=== PATIENT | female | born 1990 | race Caucasian/White ===

== ENCOUNTER 2024-11-29 13:20 | Outpatient (OUT) | payer BC, SELFPAY ==
--- NOTE | 2024-11-29 13:30 | XR_ITS ---
The [address] [address] Patient Name: ENIO TINSLEY MRN: [id number] date: 1990 Sex: F Assigned Patient Location: [facility] Current Patient Location: [facility] Accession/Order Number: [id number] Exam Date: 11/29/2024 14:39 Report Date: 11/29/2024 14:40 At the request of: MEDHAT HAAS Procedure: XR sacrum coccyx min 2V SACRUM AND COCCYX - - 4 views CLINICAL HISTORY: Acute low back/tailbone pain.. No known injury. COMPARISON: None FINDINGS: SI joints demonstrate bilateral sacroiliitis. Sacral foramina appear intact. No bony destruction is seen. Coccyx appears intact without fracture. XR/XR sacrum coccyx min 2V IMPRESSION: SACROILIITIS. NO DEFINITE ACUTE BONY PROCESS IS SEEN. Impression dictated by: Fish Hanley Jr., DIvetteOIvette11/29/2024 2:40 PM Dictation Location: [place] [address] Electronically authenticated by: [id number] Y Date: 11/29/2024 14:40
== END 2024-11-29 13:21 | disposition home or self-care (01) ==
LOC: RAD 13:25
PROVIDERS: PCP Family Medicine; Visit Provider Family Medicine
DX: M53.3 Sacrococcygeal disorders, not elsewhere classified (principal); M46.1 Sacroiliitis, not elsewhere classified
CPT/HCPCS: 72220

== ENCOUNTER 2025-07-22 04:46 | Emergency (ER) | payer SELFPAY ==
[2025-07-22 04:50] VITALS: BP 133/92; PULSE 87; TEMP 37.2; O2SAT 99; BMI 36.6
--- NOTE | 2025-07-22 05:01 | ED.ABDPAIN1 ---
Documented by User: George Campoverde MD 07/23/25 05:44 HPI - Abdominal Pain General Chief Complaint: Abdominal Pain Stated Complaint: ABDOMINAL PAIN Time Seen by Provider: 07/22/25 04:52 Source: patient Mode of arrival: walk-in Limitations: no limitations History of Present Illness HPI narrative: presents complaining of ongoing epigastric pain since 11pm. States normal BMs. No nausea or vomiting. Denies similar pain in the past . No fever or chills or respiratory symptoms Related Data Home Medications ?Medication ?Instructions ?Recorded ?Confirmed No Known Home Medications 07/22/25 07/22/25 Allergies Allergy/AdvReac Type Severity Reaction Status Date / Time No Known Drug Allergies Allergy Verified 07/22/25 04:57 Review of Systems ROS Status of ROS 10 or more systems reviewed and unremarkable except as noted in history and below PFSH PFSH Social History Little interest or pleasure in doing things: not at all Feeling down, depressed, or hopeless: not at all Exam Constitutional Vital Signs, click to edit/add: Last Vital Signs Temp 98.9 F 07/22/25 04:50 Pulse 87 07/22/25 04:50 BP 133/92 H 07/22/25 04:50 Pulse Ox 99 07/22/25 04:50 O2 Del Method Room Air 07/22/25 04:50 Common normals: no apparent distress, average body habitus, oriented x3, no limitations, healthy appearing, alert and well nourished [facility] Common normals: normocephalic and head/scalp atraumatic Eye Common normals: EOMs intact bilaterally and conjunctivae normal Respiratory Common normals: normal respiratory effort, no retractions, no use of accessory muscles and clear to auscultation bilaterally Cardio Common normals: regular rate, regular rhythm, S1 normal heart sound and S2 normal heart sound GI Common normals: Normal to inspection, nondistended, normoactive bowel sounds present and soft to palpation Other: mild epigastric tenderness. no guarding Extremity Common normals: normal to inspection and full ROM Neuro Common normals: oriented x3, CN's II-XII intact bilaterally, moves all extremities and no focal motor deficits Psych Appearance: grossly normal Course Vital Signs Vital signs: Vital Signs Temperature 98.9 F 07/22/25 04:50 Pulse Rate 87 07/22/25 04:50 Blood Pressure 133/92 H 07/22/25 04:50 Pulse Oximetry 99 07/22/25 04:50 Oxygen Delivery Method Room Air 07/22/25 04:50 Temperature 98.9 F 07/22/25 04:50 Pulse Rate 87 07/22/25 04:50 Blood Pressure 133/92 H 07/22/25 04:50 Pulse Oximetry 99 07/22/25 04:50 Oxygen Delivery Method Room Air 07/22/25 04:50 MDM - Abdominal Pain MDM Narrative Medical decision making narrative: patient presents with epigastric pain. Denies similar pain in the past. Also has epigastric tenderness. Labs unremarkable including LFTs and troponin. CT abdomen pending at change of shift. Patient rechecked and still has pain but it has improved some. She does not want any pain medication. Care transferred at change of shift due to pending CT Lab Data Labs: Lab Results 07/22/25 Range/Units 05:03 WBC 10.8 (4.0-11.0) 10^3/uL RBC 4.34 (4.20-5.40) 10^6/uL Hgb 12.4 (12.0-16.0) g/dL Hct 36.9 (36.0-48.0) % MCV 85.0 (81.0-99.0) fL MCH 28.6 (26.7-34.0) pg MCHC 33.6 (29.9-35.2) g/dL RDW 12.5 (11.0-15.0) % Plt Count 269 (150-450) 10^3/uL MPV 10.2 (9.5-13.5) fL Neut % (Auto) 64.1 (43.0-75.0) % Lymph % (Auto) 26.3 (20.5-60.0) % [place] % (Auto) 6.4 (1.7-12.0) % Eos % (Auto) 2.2 (0.9-7.0) % Baso % (Auto) 0.6 (0.2-2.0) % Neut # (Auto) 6.9 H (1.4-6.5) 10^3/uL Lymph # (Auto) 2.9 (1.2-3.8) 10^3/uL [place] # (Auto) 0.7 (0.3-0.8) 10^3/uL Eos # (Auto) 0.2 (0.0-0.7) 10^3/uL Baso # (Auto) 0.1 (0.0-0.1) 10^3/uL Abs Immat Gran (auto) 0.04 H (0.00-0.03) 10^3/uL Imm/Tot Granulo (auto) 0.4 (0.0-0.5) % Sodium 140 (136-145) mmol/L Potassium 3.7 (3.5-5.1) mmol/L Chloride 105 (98-107) mmol/L Carbon Dioxide 27.8 (21.0-32.0) mmol/L Anion Gap 10.9 BUN 10.0 (7.0-18.0) mg/dL Creatinine 0.69 (0.55-1.02) mg/dL Est GFR ( Amer) >60 (>=60 mL/min/1.73m^2) Est GFR (Non-Af Amer) >60 (>=60 mL/min/1.73m^2) BUN/Creatinine Ratio 14.5 Glucose 108 H (74-106) mg/dL Lactate 1.1 (0.4-2.0) mmol/L Calcium 9.1 (8.5-10.1) mg/dL Total Bilirubin 0.2 (0.2-1.0) mg/dL AST 17 (15-37) U/L ALT 29 (14-59) U/L Alkaline Phosphatase 59 (46-116) U/L Troponin I High Sens <4.0 L (4.0-51.3) pg/mL Total Protein 7.3 (6.4-8.2) g/dL Albumin 3.6 (3.4-5.0) g/dL Globulin 3.7 g/dL Albumin/Globulin Ratio 1.0 Lipase 43.0 (16.0-77.0) U/L Discharge Plan Discharge Chief Complaint: Abdominal Pain Clinical Impression: Biliary colic Patient Disposition: Home, Self-Care Time of Disposition Decision: 07:31 Condition: Good Mode of Transportation: Private Vehicle Prescriptions / Home Meds: No Action No Known Home Medications Print Language: Greek Instructions: Biliary Colic (ED) Referrals: Yg Wolff MD [Physician, General Surgery] - 1 week MEDHAT HAAS [Primary Care Provider, Family Practice] - 1 week Discharge Date/Time: 07/22/25 07:40 Documented by User: Parth Blum DO 07/22/25 15:57 HPI - Abdominal Pain General Chief Complaint: Abdominal Pain Stated Complaint: ABDOMINAL PAIN Time Seen by Provider: 07/22/25 04:52 Related Data Home Medications ?Medication ?Instructions ?Recorded ?Confirmed No Known Home Medications 07/22/25 07/22/25 Allergies Allergy/AdvReac Type Severity Reaction Status Date / Time No Known Drug Allergies Allergy Verified 07/22/25 04:57 PFSH PFSH Social History Little interest or pleasure in doing things: not at all Feeling down, depressed, or hopeless: not at all Exam Constitutional Vital Signs, click to edit/add: Last Vital Signs Temp 98.9 F 07/22/25 04:50 Pulse 87 07/22/25 04:50 BP 133/92 H 07/22/25 04:50 Pulse Ox 99 07/22/25 04:50 O2 Del Method Room Air 07/22/25 04:50 Course Vital Signs Vital signs: Vital Signs Temperature 98.9 F 07/22/25 04:50 Pulse Rate 87 07/22/25 04:50 Blood Pressure 133/92 H 07/22/25 04:50 Pulse Oximetry 99 07/22/25 04:50 Oxygen Delivery Method Room Air 07/22/25 04:50 Temperature 98.9 F 07/22/25 04:50 Pulse Rate 87 07/22/25 04:50 Blood Pressure 133/92 H 07/22/25 04:50 Pulse Oximetry 99 07/22/25 04:50 Oxygen Delivery Method Room Air 07/22/25 04:50 MDM - Abdominal Pain MDM Narrative Medical decision making narrative: patient presents with epigastric pain. Denies similar pain in the past. Also has epigastric tenderness. Labs unremarkable including LFTs and troponin. CT abdomen pending at change of shift. Patient rechecked and still has pain but it has improved some. She does not want any pain medication. Care transferred at change of shift due to pending CT. ATTENDING ADDENDUM: Dr. Blum Patient signed out to me by Dr. Campoverde pending CT. CT abdomen/pelvis demonstrated submillimeter gallstone at the neck of the gallbladder. Laboratory studies were unremarkable with no evidence of hyperbilirubinemia, leukocytosis, or transaminitis. On reevaluation, the patient is resting comfortably in the stretcher. She has received no analgesics and is currently a 4/10 out of pain. I did offer to obtain an ultrasound, however the patient states she feels well and feels comfortable going home. I do believe she is stable for discharge. Her presentation is likely consistent with biliary colic. She was given information for the general surgery clinic for further care. Return precautions were given for any new or concerning symptoms. Patient understands and agrees to the plan. FINAL IMPRESSION: #Acute symptomatic cholelithiasis DISPOSITION: Discharged home CONDITION: Good Lab Data Attestation: I reviewed the patient's lab results. Labs: Lab Results 07/22/25 Range/Units 05:03 WBC 10.8 (4.0-11.0) 10^3/uL RBC 4.34 (4.20-5.40) 10^6/uL Hgb 12.4 (12.0-16.0) g/dL Hct 36.9 (36.0-48.0) % MCV 85.0 (81.0-99.0) fL MCH 28.6 (26.7-34.0) pg MCHC 33.6 (29.9-35.2) g/dL RDW 12.5 (11.0-15.0) % Plt Count 269 (150-450) 10^3/uL MPV 10.2 (9.5-13.5) fL Neut % (Auto) 64.1 (43.0-75.0) % Lymph % (Auto) 26.3 (20.5-60.0) % [place] % (Auto) 6.4 (1.7-12.0) % Eos % (Auto) 2.2 (0.9-7.0) % Baso % (Auto) 0.6 (0.2-2.0) % Neut # (Auto) 6.9 H (1.4-6.5) 10^3/uL Lymph # (Auto) 2.9 (1.2-3.8) 10^3/uL [place] # (Auto) 0.7 (0.3-0.8) 10^3/uL Eos # (Auto) 0.2 (0.0-0.7) 10^3/uL Baso # (Auto) 0.1 (0.0-0.1) 10^3/uL Abs Immat Gran (auto) 0.04 H (0.00-0.03) 10^3/uL Imm/Tot Granulo (auto) 0.4 (0.0-0.5) % Sodium 140 (136-145) mmol/L Potassium 3.7 (3.5-5.1) mmol/L Chloride 105 (98-107) mmol/L Carbon Dioxide 27.8 (21.0-32.0) mmol/L Anion Gap 10.9 BUN 10.0 (7.0-18.0) mg/dL Creatinine 0.69 (0.55-1.02) mg/dL Est GFR ( Amer) >60 (>=60 mL/min/1.73m^2) Est GFR (Non-Af Amer) >60 (>=60 mL/min/1.73m^2) BUN/Creatinine Ratio 14.5 Glucose 108 H (74-106) mg/dL Lactate 1.1 (0.4-2.0) mmol/L Calcium 9.1 (8.5-10.1) mg/dL Total Bilirubin 0.2 (0.2-1.0) mg/dL AST 17 (15-37) U/L ALT 29 (14-59) U/L Alkaline Phosphatase 59 (46-116) U/L Troponin I High Sens <4.0 L (4.0-51.3) pg/mL Total Protein 7.3 (6.4-8.2) g/dL Albumin 3.6 (3.4-5.0) g/dL Globulin 3.7 g/dL Albumin/Globulin Ratio 1.0 Lipase 43.0 (16.0-77.0) U/L Imaging Data CT scan - abdomen: Attestation: I personally reviewed and interpreted this imaging study as follows: Discharge Plan Discharge Chief Complaint: Abdominal Pain Clinical Impression: Biliary colic Patient Disposition: Home, Self-Care Time of Disposition Decision: 07:31 Condition: Good Mode of Transportation: Private Vehicle Prescriptions / Home Meds: No Action No Known Home Medications Print Language: Greek Instructions: Biliary Colic (ED) Referrals: Yg Wolff MD [Physician, General Surgery] - 1 week MEDHAT HAAS [Primary Care Provider, Family Practice] - 1 week Discharge Date/Time: 07/22/25 07:40
[2025-07-22 05:10] LABS: Hematocrit 36.9 % (36.0-48.0); Hemoglobin 12.4 g/dL (12.0-16.0); Immature Granulocytes Abs Auto 0.04 10^3/uL (0.00-0.03); Immature Granulocytes Pct Auto 0.4 % (0.0-0.5); Lymphocytes Absolute Auto 2.9 10^3/uL (1.2-3.8); Mean Corpuscular HGB Conc 33.6 g/dL (29.9-35.2); Mean Corpuscular Hemoglobin 28.6 pg (26.7-34.0); Mean Corpuscular Volume 85.0 fL (81.0-99.0); Platelet Count 269 10^3/uL (150-450); Red Blood Count 4.34 10^6/uL (4.20-5.40); White Blood Count 10.8 10^3/uL (4.0-11.0)
[2025-07-22 05:25] LABS: Alanine Aminotransferase 29 U/L (14-59); Albumin Globulin Ratio 1.0; Albumin Level 3.6 g/dL (3.4-5.0); Alkaline Phosphatase 59 U/L (46-116); Anion Gap 10.9; Aspartate Amino Transferase 17 U/L (15-37); Blood Urea Nitrogen 10.0 mg/dL (7.0-18.0); Calcium 9.1 mg/dL (8.5-10.1); Carbon Dioxide 27.8 mmol/L (21.0-32.0); Chloride 105 mmol/L (98-107); Estimated GFR (African America >60 (>=60 mL/min/1.73m^2); Estimated GFR (Non-African Ame >60 (>=60 mL/min/1.73m^2); Globulin 3.7 g/dL; Glucose 108 mg/dL (74-106); Potassium 3.7 mmol/L (3.5-5.1); Sodium 140 mmol/L (136-145); Total Protein 7.3 g/dL (6.4-8.2)
[2025-07-22 05:27] LABS: Lactate/Lactic Acid 1.1 mmol/L (0.4-2.0)
[2025-07-22 05:28] LABS: Lipase 43.0 U/L (16.0-77.0)
--- OUTSIDE RECORDS SUMMARY | 2025-07-22 06:27 | XMS_ITS | Clinical Summary ---
Author Organization [facility] Address [address] [place] [address] Care Team Providers Care Etl Architect Name Role Phone Yonis Turner MD Primary Care Provider [phone] Allergies No known active allergies Medications MedicationSigDispense QuantityRefillsLast FilledStart DateEnd DateStatus busPIRone (BUSPAR) 10 MG tablet Indications:AnxietyTake 1 (one) tablet (10 mg total) by mouth 3 (three) times a day . 90 tablet Active DULoxetine (CYMBALTA) 30 MG capsule Indications:Anxiety,Paresthesia of skinTake 1 (one) capsule (30 mg total) by mouth daily . 30 capsule Active Active Problems ProblemNoted DateDiagnosed DateEnlarged okkjrct7003/13/2019Gastroesophageal reflux bscalep6903/13/2019Paresthesia of skin01/27/20191682Pwtnbrg71/31/2018Depression 09/10/2018 Family History Medical HistoryRelationCommentsCancerMaternal AuntThyroid diseaseMaternal GrandmotherCancerMaternal UncleThyroid diseaseMotherRelationStatusComments Maternal AuntMaternal GrandmotherMaternal UncleMother Social History Tobacco UseTypesPacks/DayYears UsedDateSmoking Tobacco: FormerSmokeless Tobacco: NeverAlcohol UseStandard Drinks/WeekCommentsNot Currently0 (1 standard drink = 0.6 oz pure alcohol)PHQ-2AnswerDate RecordedPHQ-2 Aqqcl78610/14/2018 CommentsNoSex and Gender InformationValueDate RecordedSex Assigned at BirthNot on fileLegal WynKfizzw14/22/2015 9:43 AM EDTGender YhxylehzUxazdz35/05/2018 9:40 AM EDTSexual SgqmoyetgjuKclzmdrc02/05/2021 12:52 PM EDT Last Filed Vital Signs Vital SignReadingTime TakenCommentsBlood Tedpcnih819/80003/13/2019 3:43 PM EDT Vtwpq93434/03/2019 3:43 PM ZYDBgsxiawigdh65.1 ??C (98.8 ??F)03/13/2019 3:43 PM EDTRespiratory Uafv793003/13/2019 3:43 PM EDTOxygen Udmtmezhpl79%03/13/2019 3:43 PM EDTInhaled Oxygen Concentration--Yeedan706.7 kg (263 lb 12.8 oz)03/13/2019 3:43 PM BDMOtyerw084.5 cm (5' 2 )03/13/2019 3:43 PM EDTBody Mass Index48.25 03/13/2019 3:43 PM EDT Plan of Treatment Health MaintenanceDue DateLast DoneCommentsMMR Vaccines (1 of 1 - Standard series)1990Wellness Visit02/14/1992Varicella Vaccines (1 of 2 - 13+ 2-dose series)2002HIV Uvhhceyww51/05/2004Hepatitis C Bocwtvmwc85/05/2007Hepatitis B Vaccines (1 of 3 - 19+ 3-dose series)02/14/2008Tetanus/Diphtheria/Pertussis (1 - Tdap)02/14/2008Pap Smear2010HPV Vaccines (1 - 3-dose SCDM series) 02/14/2016Cervical Cancer Obigywrcw13/05/2019HPV/Qoprox5202/13/2019Depression Screening/Follow-Up (PHQ-2/9)COVID-19 Vaccine (1 - 2024- season)2025Influenza Vaccine (#1)2025Zoster Vaccines (1 of 2) 2039RSV Vaccines (1 - 1-dose 75+ series)02/14/2064HIB VaccinesAged OutNo longer eligible based on patient's age to complete this topicHepatitis A VaccinesAged OutNo longer eligible based on patient's age to complete this topic IPV VaccinesAged OutNo longer eligible based on patient's age to complete this topicMeningococcal ACWY VaccineAged OutNo longer eligible based on patient's age to complete this topicMeningococcal B VaccineAged OutNo longer eligible based on patient's age to complete this topicPneumococcal VaccineAged OutNo longer eligible based on patient's age to complete this topicRotavirus VaccinesAged Out No longer eligible based on patient's age to complete this topic Insurance * Guarantor: Alesia Ortiz TypeRelation to PatientDate of BirthPhone Billing MgjrjiiIaxqmzKrqu1990 [address] [place] [address] Care Teams Team MemberRelationshipSpecialtyStart Date Yonis Turner MD [address] [place] [id number] [facility] - Jbrnddg92/7/22
--- OUTSIDE RECORDS SUMMARY | 2025-07-22 06:27 | XMS_ITS | Clinical Summary ---
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 14 tablet 01/17/2018Active busPIRone 10 MG Tab tablet Take 10 mg by mouth 3 times daily.Active duloxetine [address] Particles capsule DR Take 30 mg by mouth daily.Active faMOTIdine 20 MG Tab tablet Take 1 tablet by mouth 2 times daily. 60 tablet Active Active Problems ProblemNoted DateDiagnosed Datebody mass index of 40.0-49.909Anxiety 05/28/20198626Hzsxmptsnz75/17/2019GERD (gastroesophageal reflux disease)05/28/2019 Chronic bilateral low back pain with bilateral /17/2019Chronic joint pain05/28/20194745Dpojfcxkgwxwn58/17/2019Wrist pain, acute, right01/17/2018 Family History Medical HistoryRelationNameCommentsCancer- OtherOtherfamilyOther - SpecifySister Pituitary Gland TumorRelationNameStatusCommentsOtherfamilyAliveSister Social History Tobacco UseTypesPacks/DayYears UsedDateSmoking Tobacco: FzwactBsfdvekzly4Ozgx: 2018Smokeless Tobacco: NeverAlcohol UseStandard Drinks/WeekCommentsNo0 (1 standard drink = 0.6 oz pure alcohol)CommentsNoSex and Gender InformationValueDate RecordedSex Assigned at BirthNot on fileLegal SexFemale 09/16/2016 7:11 PM ESTGender RchppyjwPorbuw89/09/2018 10:39 AM EDTSexual OrientationNot on file Last Filed Vital Signs Vital SignReadingTime TakenCommentsBlood Lkvhmbsq625/9605/28/2019 11:01 AM EDT Xjrbu79881/17/2019 11:01 AM NSPUehjhuywdra93.5 ??C (97.7 ??F)01/23/2018 10:37 AM EDTRespiratory Wdca374201/17/2018 12:08 PM EDTOxygen Ecekiszlri90%05/28/2019 11:01 AM EDTInhaled Oxygen Concentration--Aolzly704.9 kg (268 lb 12.8 oz)05/28/2019 11:01 AM SOHMzowhj284 cm (5' 3 )05/28/2019 11:01 AM EDTBody Mass Index47.62 05/28/2019 11:01 AM EDT Plan of Treatment Health MaintenanceDue DateLast DoneCommentsHEPATITIS C VIRUS SFKTYEKIY1989 DJIBMIV7502/13/1989HIV SCREENING CLHRYTNOBK49/05/2004HEP B VACCINE (1 of 3 - 19+ 3-dose series)02/14/2008TDAP (ADULT)02/14/2008CERVICAL CANCER SCREENING RZXBVWRMGH26/05/2010HPV VACCINE (1 - 3-dose SCDM series)02/14/2016COVID-19 VACCINE ( - 2024- season)2025INFLUENZA VACCINE (#1)2025 PNEUMOCOCCAL VACCINE SERIESAged OutNo longer eligible based on patient's age to complete this topic
--- OUTSIDE RECORDS SUMMARY | 2025-07-22 06:27 | XMS_ITS | CCD ---
Author Organization [facility] Care Team Providers Care Vocational Counselor Name Role Phone JUSTEN BELLE A Unavailable Unavailable SELF, SELF Unavailable Unavailable JUSTEN, BELLE A Unavailable Unavailable JUSTEN, BELLE A Unavailable Unavailable Charity, Natalia Sherrill Unavailable Unavailable Charity, [place] Sherrill Unavailable Unavailable Michael Yaneli Unavailable Unavailable Michael Yaneli Unavailable Unavailable SAJI KAPOOR Unavailable Unavailable MAGUE A ROBERT Unavailable Unavailable MAGUELen ROBERT Unavailable Unavailable NO, PHYSICIAN Unavailable Unavailable No, Physician Primary Care Provider Unavailabl e NO, PHYSICIAN Primary Care Unavailable LUIS ARMANDO MEYERS JR. Attending Unav ailable NO, PHYSICIAN Primary Care Unavailable LUIS ARMANDO MEYERS JR. Attending Unav ailable DOMI, RANDY Attending Unavailable DOMI, RANDY Referring Unavailable DOMI, RANDY Primary Care Unavailable Unavailable Primary Care Provider Unavailabl e Domi, Randy Primary Care Provider Medhat Haas MD Primary Care Provider Medhat Haas MD Unavailable MEDHAT HAAS Attending Unavailable MEDHAT HAAS Attending Unavailable MEDAHT HAAS Attending Unavailable MEDHAT HAAS Attending Unavailable MEDHAT HAAS Attending Unavailable Medhat Haas MD Unavailable Allergies Allergy ClassificationReported Allergen(s)Allergy TypeDate of OnsetReaction(s) Facility (14 sources)acetaminophen; Translations: [ACETAMINOPHEN]Drug [id number] [facility] Repository Medications Current Medications MedicationDrug Class(es)DatesSig (Normalized)Sig (Original)ALPRAZolam 0.5 mg oral tablet (10 sources)BenzodiazepineStart: 10-31-2024 End: 34-46-3925luse 1 tablet by mouth in the morningALPRAZolam (Xanax) 0.5 MG tablet Indications: Grief reaction Take 1 tablet (0.5 mg) by mouth in themorning and 1 tablet (0.5 mg) before bedtime. 60 tablet 10/31/2024 Activeamphetamine aspartate 5 mg / amphetamine sulfate 5 mg / dextroamphetamine saccharate 5 mg / dextroamphetamine sulfate 5 mg oral tablet (20 sources)Central Nervous System StimulantStart: 04-29-2024 End: 92-02-9010wxss 1 tablet by mouth once dailyamphetamine-dextroamphetamine (Adderall) 20 MG tablet Indications: Attention deficit hyperactivity disorder (ADHD), combined type Take 1 tablet (20 mg) by mouth Daily 30 tablet 04/10/2025 05/10/2025 Activebaclofen 10 mg oral tablet (6 sources)gamma-Aminobutyric Acid-ergic AgonistStart: 12-09-2024 End: 99-69-5486hsgs 1 tablet by mouth in the morning, then take 1 tablet by mouth in the evening, then take 1 tablet by mouth at bedtimebaclofen (Lioresal) 10 MG tablet Indications: Lumbar radiculopathy, acute , Sacral back pain TAKE 1 TABLET BY MOUTH IN THE MORNING AND 1 TABLET IN THE EVENING AND 1 TABLET BEFORE BEDTIME. 270 tablet 12/31/2024 ActivebusPIRone hydrochloride 10 mg oral tablet (7 sources)Start: 01-29-2019 End: 74-69-0101oqjm 1 tablet by mouth three times dailybusPIRone (BUSPAR) 10 MG tablet Indications: Anxiety Take 1 (one) tablet (10 mg total) by mouth 3 (three) times a day . 90 tablet 1 01/29/2019 03/30/2019 Activecitalopram 20 mg oral tablet (2 sources)Serotonin Reuptake InhibitorStart: 48-51-4743zetz 1 tablet by mouth once daily, then take 0.5 tablet by mouth once dailycitalopram (CELEXA) 20 MG tablet Indications: Anxiety , Depression, unspecified depression type Take 1 (one) tablet (20 mg total) by mouth daily 1/2 tab daily for first week only . 30 tablet 1 09/10/2018 ActiveDULoxetine 30 mg delayed release oral capsule (12 sources)Serotonin and Norepinephrine Reuptake InhibitorStart: 01-29-2019 End: 12-50-2949noqm 1 capsule by mouth once dailyDULoxetine (CYMBALTA) 30 MG capsule Indications: Anxiety , Paresthesia of skin Take 1 (one) capsule(30 mg total) by mouth daily . 30 capsule 1 01/29/2019 03/30/2019 Active End: 39-56-7576qvjt 1 capsule by mouth in the morningDULoxetine (Cymbalta) [address] capsule Take 60 mg by mouth in the morning. Do not crush or chew. . 0 10/31/2024 Discontinued (Other)famotidine 20 mg oral tablet (6 sources)Histamine-2 Receptor AntagonistStart: 03-65-1336gfdr 1 tablet by mouth twice dailyfaMOTIdine 20 MG Tab tablet Take 1 tablet by mouth 2 times daily. 60 tablet 3 05/28/2019 ActivehydroCHLOROthiazide 25 mg oral tablet (5 sources)Thiazide DiureticStart: 04-29-2024 End: 73-07-7406kewq 1 tablet by mouth once dailyhydroCHLOROthiazide (HYDRODiuril) 25 MG tablet Indications: Elevated blood pressure reading Take 1 t ablet (25 mg) by mouth Daily 30 tablet 11 04/29/2024 10/31/2024 Discontinued (Other)methylPREDNISolone (6 sources)CorticosteroidStart: 85-90-4284elroxqPXQYTGKxcnue (Medrol Dospak) 4 MG tablets Indications: Sacral back pain Follow schedule on package instructions 21 tablet 12/02/2024 Activenitrofurantoin, macrocrystals 25 mg / nitrofurantoin, monohydrate 75 mg oral capsule (1 source)Nitrofuran AntibacterialStart: 01-13-2019 End: 04-78-1187xzvb 1 capsule by mouth twice dailynitrofurantoin, macrocrystal- monohydrate, (MACROBID) 100 MG capsule Take 1 (one) capsule (100 mg total) by mouth 2 (two) times a day for 14 doses . 14 capsule 0 01/13/2019 01/20/2019 ActiveSemaglutide,0.25 or 0.5MG/DOS, (Ozempic, 0.25 or 0.5 MG/DOSE,) 2 MG/3ML solution pen-injector (2 sources)Start: 04-29-2024 End: 21-13-0192Qxbrvpufbkb,0.25 or 0.5MG/DOS, (Ozempic, 0.25 or 0.5 MG/DOSE,) 2 MG/3ML solution pen-injector Indications: Elevated blood pressure reading , Hyperglycemia Inject 0.25 mg under the skin 1 (one) time per week 12 mL 1 04/29/2024 09/16/2024 Discontinued (Side effects)Start: 04-29-2024 Semaglutide,0.25 or 0.5MG/DOS, (Ozempic, 0.25 or 0.5 MG/DOSE,) 2 MG/3ML solution pen-injector Indications: Elevated blood pressure reading , Hyperglycemia Inject 0.25 mg under the skin 1 (one) time per week 12 mL 1 04/29/2024 Active Tirzepatide (Mounjaro) 2.5 MG/0.5ML solution auto-injector (8 sources)Start: 22-82-8569sfqcuc 2.5 mg by subcutaneous injection every week Tirzepatide (Mounjaro) 2.5 MG/0.5ML solution auto-injector Indications: Weight gain , Obesity, morbid, BMI 40.0-49.9 (CMS-HCC) Inject 2.5 mg under the skin 1 (one) time per week 0.5 mL 11/14/2024 ActiveStart: 13-46-5647lnrscz 2.5 mg by subcutaneous injection every weekTirzepatide (Mounjaro) 2.5 MG/0.5ML solution auto-injector Indications: Weight gain , Obesity, morbid, BMI 40.0-49.9 (CMS/HCC) Inject 2.5 mg under the skin 1 (one) time per week 0.5 mL 11/14/2024 ActiveTirzepatide-Weight Management solution auto-injector 2.5 mg (1 source)Start: 09-17-2024 End: 39-66-9094Dvcmzmcqoas-Weight Management solution auto-injector 2.5 mg traMADol hydrochloride 50 mg oral tablet (5 sources)Opioid AgonistStart: 08-87-6765qliq 1 tablet by mouth every six hours as needed for paintraMADol 50 MG Tab tablet Indications: Wrist pain, acute, right Take 1 tablet by mouth every 6 hours as needed for Moderate Pain for up to 5 days. 14 tablet 0 01/17/2018 Active Completed/Discontinued Medications MedicationDrug Class(es)DatesSig (Normalized)Sig (Original)azithromycin 250 mg oral tablet (2 sources)Macrolide AntimicrobialStart: 02-12-2025 End: 50-42-7524jlbhqaczzxfs (Zithromax) 250 MG tablet Indications: Sinusitis, unspecified chronicity, unspecified location Take 2 tabs (500 mg) by mouth today, than 1 daily for 4 days. 6 tablet 02/12/2025 02/17/2025 ExpiredStart: 01-16-2025 End: 17-20-3924wwnc 2 tablets by mouth once daily, then take 1 tablet by mouth once dailyazithromycin (Zithromax) 250 MG tablet Indications: Viral upper respiratory tract infection Take 2 tablets (500 mg) by mouth Daily for 1 day, THEN 1 tablet (250 mg) Daily for 4 days. 6 tablet 01/16/2025 01/21/2025 Active Problems Active Problems Problem ClassificationProblemDateDocumented DateEpisodic/ChronicAbdominal pain (1 source)Flank pain; Translations: [Flank pain]EpisodicAdjustment disorders (12 sources)Grief finding; Translations: [Adjustment disorder with depressed mood]Onset: 181332-50-8876MbdchiyLeuyzhc disorders (20 sources)Anxiety; Translations: [Generalized anxiety disorder]Onset: 878436-52-1066PbeorwlPuqaumfxp-acpwyfw, conduct, and disruptive behavior disorders (7 sources)Attention deficit hyperactivity disorder, combined type; Translations: [Attention-deficit hyperactivity disorder, combined type] 57-06-4393QhlbclcSpksilnsg-deficit, conduct, and disruptive behavior disorders (13 sources)Attention deficit hyperactivity disorder; Translations: [Attention- deficit hyperactivity disorder, unspecified type]Onset: 330581-66-5911 ChronicEsophageal disorders (20 sources)Gastroesophageal reflux disease; Translations: [Gastro-esophageal reflux disease without esophagitis]Onset: 021898-84-1250MskkvzyJkmhalzi of upper limb (2 sources)Fracture of unspecified carpal bone, right wrist, initial encounter for closed fracture; Translations: [Fracture of unspecified carpal bone, right wrist, initial encounter for closed fracture]Onset: 91-33-1422FdgzcacvArktfvb and fatigue (2 sources)Other fatigue; Translations: [Other fatigue]Onset: 41-56-6880Fxdsnbxb Mood disorders (20 sources)Depressive disorder; Translations: [Depression]Onset: 09-10-2018 15-98-0393PfkwuyxVexrw complications of (13 sources)Maternal obesity complicating , childbirth and the puerperium, antepartum; Translations: [Obesity complicating , unspecified trimester]Onset: 226623-69-3758PadgqmfCnrzc nervous system disorders (12 sources)Bilateral lower limb piriformis syndrome; Translations: [Lesion of sciatic nerve, bilateral lower limbs]Onset: 814126-55-5212DvhytkpPaiof non-traumatic joint disorders (1 source)Pain in right wrist; Translations: [Pain in right wrist]Onset: 30-22-3720DvfywrkoAjxto nutritional; endocrine; and metabolic disorders (9 sources)Morbid obesity; Translations: [Obesity, morbid, BMI 40.0-49.9]Onset: 448047-74-3263QdlpsicJhjrq nutritional; endocrine; and metabolic disorders (6 sources)Obesity caused by energy imbalance; Translations: [Morbid (severe) obesity due to excess calories]Onset: 004653-64-0892BtlfpfpUeusi nutritional; endocrine; and metabolic disorders (10 sources)Body mass index 40+ - severely obese; Translations: [Morbid (severe) obesity due to excess calories]Onset: 518511-82-5664MhcsnwdVkptn upper respiratory infections (1 source)Sinusitis; Translations: [Chronic sinusitis, unspecified]02-12-2025 ChronicOther upper respiratory infections (1 source)Viral upper respiratory tract infection; Translations: [Acute upper respiratory infection, unspecified]46-75-2204KwnqpznkYojttwdfjch; intervertebral disc disorders; other back problems (8 sources)Inflammation of sacroiliac joint; Translations: [Sacroiliitis, not elsewhere classified]Onset: 716467-01-7725HtdhlidZvkwbdz disorders (14 sources)Goiter; Translations: [Nontoxic goiter, unspecified]Onset: 389383-46-9763OzugkqsAjbwyuq tract infections (1 source)Urinary tract infectious disease; Translations: [Urinary tract infection without hematuria, site unspecified]Episodic Past or Other Problems Problem ClassificationProblemDateDocumented DateEpisodic/ChronicDiabetes mellitus without complication (20 sources)Hyperglycemia; Translations: [Hyperglycemia, unspecified]Onset: 064372-81-1117AcdvwfwoSvxuykjzq and duodenitis (13 sources)Gastritis; Translations: [Gastritis, unspecified, without bleeding] Onset: 393501-17-2214IhkrvcjtSalvqqmjlkzsf symptoms and ill-defined conditions (13 sources)H/O: kidney infection; Translations: [Personal history of other diseases of urinary system]Onset: 763044-42-4942MhelpuhuIqakz circulatory disease (13 sources)Elevated blood pressure; Translations: [Elevated blood-pressure reading, without diagnosis of hypertension]Onset: 932178-50-1708Xzvvbjdc Other complications of ; puerperium affecting management of mother (13 sources)Anomaly of kidney; 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]Onset: 349445-38-2193HpeesaguHxtkg gastrointestinal disorders (13 sources)Constipation; Translations: [Other constipation]Onset: 02-02-2023 37-58-6287TudjkvbyXnwcp nervous system disorders (15 sources)Paresthesia; Translations: [Paresthesia of skin]Onset: 01-27-2019 15-75-7042LociorupAbyqz non-traumatic joint disorders (20 sources)Pain in wrist; Translations: [Pain in right wrist]Onset: 01-17-2018 27-12-6904YbxufybwZgpbe non-traumatic joint disorders (20 sources)Joint pain; Translations: [Pain in unspecified joint]Onset: 485935-65-5123DzeiksxxCoysv nutritional; endocrine; and metabolic disorders (10 sources)Weight increased; Translations: [Abnormal weight gain]Onset: 616246-29-2567JmtqybroQaupybqypfi; intervertebral disc disorders; other back problems (20 sources)Chronic low back pain; Translations: [Lumbago with sciatica, left side]Onset: 916891-34-8771BrmwvlhqBiynj infection (13 sources)Disease caused by 2019-nCoV; Translations: [COVID-19]Onset: 952623-75-0774Vzrocmid Results Test NameValueInterpretationReference RangeFacilitySaint Luke'S Hospital Medicine Office/Clinic Noteon 73-21-1458Ruhocn Medicine Office/Clinic NoteChief Complaint EST tooth pain HPI Staff Pt presents today for Rt sided tooth pain. The pain goes up into the uatsdin and ear. Pain onset last night. She has taken about 800 mg of Ibuprofen as well as some Tylenol and an NSAID with no relief. Has also tried ice with no relief. History of Present Illness I have reviewed and verified the staff HPI to be accurate for this encounter. 30 YOF presents to [facility] for evaluation of right sided dental pain that began last night. Is tearful,in an obvious amount of pain. Cannot chew to eat. Able to swallow ok. Pain extends right upper jaw to right ear. No fevers/chills at home. Denies swelling and popping/locking of jaw. Describes pain as sharp, achy and stabbing . Put pack of frozen pork chops on face to help with pain. Eating and talking makes pain worse. Has not eaten today due to pain. Similar pain experienced when wisdom teeth came in but this is worse than before. Took Motrin this morning and Tylenol this afternoon without relief. Has dental appointment on this Monday. Denies known COVID exposure. Review of Systems Constitutional: fever:no, chills:no, sweats:no, weakness:no, body aches:no, JEFFERS:no ENMT: ear pain:yes, right ear, sore throat:no, nasal congestion:no , nasal drainage: no, hoarseness:no Physical Exam Vitals & Measurements HR: 101(Peripheral) RR: 18 BP: 144/88 SpO2: 98% HT: 158 cm HT: 158.0 cm WT: 115 kg WT: 115.0 kg BMI: 46.07 General: Overweight, Ears: No deformity or lesion of external ear. Canals and TM appear normal bilaterally. TM?s intact,not inflamed, with normal light reflex. Hearing grossly normal to conversational speech Nose: No deformity, discharge, inflammation, or lesions Mouth: limited exam due to patient pain. No obvious dental infection or cracked teeth. Mental Status: Alert and oriented x3. Normal mood and affect Assessment/Plan 1. Disorder of oral soft tissue (K13.70: Unspecified lesions of oral mucosa) Exam consistent with the beginning of a dental infection/dental abscess. Will treat with PCN VK. Ptinstructed to use salt water gargles. No smoking. Follow up with a dentist to have the teeth addressed because the infections will continue to happen without having the issues fixed. Tylenol and Ibuprofen OTC for pain. Go to ED for worsening swelling, trouble swallowing, etc. Tramadol short course of 3 days for pain until can get into dentist. Lidocaine prn pain. OARRS reviewed and found to have: no concerns Opioid use was discussed with patient including proposed benefits of improving pain and function, and potential risks including development of dependence and addiction. Patient was directed to keep prescriptions in a safe, secure, preferably locked location to prevent loss or theft. Dispose of unused medication safely - turn in to local police department Take back program if this program is notavailable the FDA recommends flushing narcotics down the toilet. 2. Disorder of gums (K06.9: Disorder of gingiva and edentulous alveolar ridge, unspecified) Follow-up With When Contact Information DOMI RIVERA, RANDY Additional Instructions: Patient Education Dental Care and Dentist Visits Problem List/Past Medical History Ongoing Anxiety Depression Disorder of oral soft tissue Morbid obesity with body mass index of 45.0-49.9 in adult Historical Disorder of gums Procedure/Surgical History Tonsils and adenoids (2012). Medications busPIRone 10 mg Tab, 10 mg= 1 tab(s), Oral, TID duloxetine 30 mg Cap-DR, 30 mg, Oral, Daily Lidocaine Viscous 2% mucous membrane solution, 0.1 gm= 5 mL, Topical, TIDAC, PRN penicillin V potassium 500 mg Tab, 500 mg= 1 tab(s), Oral, q6hr tramadol 50 mg oral tablet, 50 mg= 1 tab(s), Oral, q8hr, PRN Allergies No Known Allergies Social History Alcohol - Denies Alcohol Use, 07/16/2019 Substance Abuse - Denies Substance Abuse, 07/16/2019 Tobacco - Denies Tobacco Use, 07/16/2019 10 or more cigarettes (1/2 pack or more)/day in last 30 days Tobacco Use:. Never Smokeless Tobacco Use:. Cigarettes, 08/26/2020 Family History Family history is negative patient was seen in conjunction with the INVESTIGATOR OPERATOR Antonette Banks. I independently examined the patient I agree with the findings and documentation above.[facility] HospitalComment on above:Result Comment: Electronically Signed By: PATRICK CAREY CNP\.br\Date and Time Signed: 08/26/20 20:09 EST Patient Educationon 22-78-2761Ujvdgsz EducationDentistry Dental Care and Dentist Visits Dental care supports good overall health. Regular dental visits can also help you avoid dental pain, bleeding, infection, and other more serious health problems in the future. It is important to keepthe mouth healthy because diseases in the teeth, gums, and other oral tissues can spread to other areas of the body. Some problems, such as diabetes, heart disease, and pre-term labor have been associated with poor oral health. See your dentist every 6 months. If you experience emergency problems such as a toothache or brokentooth, go to the dentist right away. If you see your dentist regularly, you may catch problems early. It is easier to be treated for problems in the early stages. WHAT TO EXPECT AT A DENTIST VISIT Your dentist will look for many common oral health problems and recommend proper treatment. At yourregular dental visit, you can expect: ? Gentle cleaning of the teeth and gums. This includes scraping and polishing. This helps to removethe sticky substance around the teeth and gums (plaque ). Plaque forms in the mouth shortly after eating. Over time, plaque hardens on the teeth as tartar. If tartar is not removed regularly, it can cause problems. Cleaning also helps remove stains. ? Periodic X-rays. These pictures of the teeth and supporting bone will help your dentist assess the health of your teeth. ? Periodic fluoride treatments. Fluoride is a natural mineral shown to help strengthen teeth. Fluoride treatment?involves applying a fluoride gel or varnish to the teeth. It is most commonly done in children. ? Examination of the mouth, tongue, jaws, teeth, and gums to look for any oral health problems, such as: ? Cavities (dental caries ). This is decay on the tooth caused by plaque, sugar, and acid in the mouth. It is best to catch a cavity when it is small. ? Inflammation of the gums caused by plaque buildup (gingivitis ). ? Problems with the mouth or malformed or misaligned teeth. ? Oral cancer or other diseases of the soft tissues or jaws.? KEEP YOUR TEETH AND GUMS HEALTHY For healthy teeth and gums, follow these general guidelines as well as your dentist's specific advice: ? Have your teeth professionally cleaned at the dentist every 6 months. ? Spencer twice daily with a fluoride toothpaste. ? Floss your teeth daily.? ? Ask your dentist if you need fluoride supplements, treatments, or fluoride toothpaste. ? Eat a healthy diet. Reduce foods and drinks with added sugar. ? Avoid smoking. TREATMENT FOR ORAL HEALTH PROBLEMS If you have oral health problems, treatment varies depending on the conditions present in your teeth and gums. ? Your caregiver will most likely recommend good oral hygiene at each visit. ? For cavities, gingivitis, or other oral health disease, your caregiver will perform a procedure to treat the problem. This is typically done at a separate appointment. Sometimes your caregiver willrefer you to another dental specialist for specific tooth problems or for surgery. SEEK IMMEDIATE DENTAL CARE IF: ? You have pain, bleeding, or soreness in the gum, tooth, jaw, or mouth area. ? A permanent tooth becomes loose or from the gum socket. ? You experience a blow or injury to the mouth or jaw area. Document Released: 05/09/2012 Document Revised: 11/19/2012 Document Reviewed: 05/09/2012 ExitCare? Patient Information ?2013 [employer].[facility]US THYROID ONLYon 20-24-2205QD THYROID ONLYEXAMINATION: US THYROID ONLY HISTORY: ORDERING SYSTEM PROVIDED HISTORY: Enlarged thyroid, TECHNOLOGIST PROVIDED HISTORY: Reason for exam: ENLARGED THYROID GLAND Illness/Other Cancer History: unknown Surgery, RadiationHistory: n/a Encounter Type: Initial Additional signs and symptoms: N ORDERING SYSTEM PROVIDED DIAGNOSIS CODES: E04.9 Enlarged thyroid COMPARISON: None. TECHNIQUE: Thyroid ultrasound utilizing grayscale and color Doppler analysis. FINDINGS: The thyroid gland is enlarged, with homogeneous echotexture. No solid nodules. Vascularity is normal. Right thyroid lobe measures 7.5 x 2.2 x 2.4 cm (20.7 mL). Isthmus measures 0.2 cm in AP dimension. Left thyroid lobe measures 7.6 x 2.5 x 2.5 cm (25.1 mL). IMPRESSION: 1. Thyromegaly with homogeneous echotexture and normal vascularity. 2. No solid nodules. [employer] Workstation ID: [id number] Dictated by: MIRIAN HAYES on MonJanuary 31, 2019 11:15:02 AM EDT Transcribed by: RODRIGUEZ PRESLEY IN [employer] on MonJanuary 31, 2019 11:15:02 AM EDT Finalized by: IMRIAN HAYES on MonJanuary 31, 2019 6:33:26 PM EDTNoRhode Island HospitalComment on above:Order Comment: Reason for exam?:ENLARGED THYROID GLAND Injury/Trauma or Illness?:Illness/Other How long have you had these symptoms (acute/chronic)?:Acute History of cancer?:unknown Surgeries, chemotherapy, or radiation?:n/a Type of Exam?:Initial Additional signs and symptoms?:NUS Thyroid Onlyon . Thyromegaly with homogeneous echotexture and normal vascularity. 2. No solid nodules. [employer] Work station ID: [id number]: US THYROID ONLY HISTORY: ORDERING SYSTEM PROVIDED HISTORY: Enlarged thyroid, TECHNOLOGIST PROVIDED HISTORY: Reason for exam: ENLARGED THYROID GLAND Illness/Other Cancer History: unknown Surgery, RadiationHistory: n/a Encounter Type: Initial Additional signs and symptoms: N ORDERING SYSTEM PROVIDED DIAGNOSIS CODES: E04.9 Enlarged thyroid COMPARISON: None. TECHNIQUE: Thyroid ultrasoundutilizing grayscale and color Doppler analysis. FINDINGS: The thyroid gland is enlarged, with homogeneous echotexture. No solid nodules. Vascularity is normal. Right thyroid lobe measures 7.5 x 2.2 x2.4 cm (20.7 mL). Isthmus measures 0.2 cm in AP dimension. Left thyroid lobe measures 7.6 x 2.5 x 2.5 cm (25.1 mL).[facility] [place] [facility] [employer] - 01/31/2019 6:36 PM EDT EXAMINATION: US THYROID ONLY HISTORY: ORDERING SYSTEM PROVIDED HISTORY: Enlarged thyroid, TECHNOLOGIST PROVIDED HISTORY: Reason for exam: ENLARGED THYROID GLAND Illness/Other Cancer History: unknown Surgery, RadiationHistory: n/a Encounter Type: Initial Additional signs and symptoms: N ORDERING SYSTEM PROVIDED DIAGNOSIS CODES: E04.9 Enlarged thyroid COMPARISON: None. TECHNIQUE: Thyroid ultrasound utilizing grayscale and color Doppler analysis. FINDINGS: The thyroid gland is enlarged, with homogeneous echotexture. No solid nodules. Vascularity is normal. Right thyroid lobe measures 7.5 x 2.2 x 2.4 cm (20.7 mL). Isthmus measures 0.2 cm in AP dimension. Left thyroid lobe measures 7.6 x 2.5 x 2.5 cm (25.1 mL). IMPRESSION: 1. Thyromegaly with homogeneous echotexture and normal vascularity. 2. No solid nodules. [employer] Workstation ID: [id number] gap molar conc12 mmol/L10 - 20 mmol/LOhioHealthCalcium mass conc8.8 mg/dL8.4 - 10.2 mg/dLOhioHealth Chloride molar sacq361 mmol/L98 - 108 mmol/LOhioHealthCreatinine mass conc0.74 mg/dL0.4 - 1.1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 [facility] SouthCxjgxagctg98-50-1123 11:05-0326WiT8% (BldA) [Mass fraction]98 %Medhat Haas MD Work Phone: [facility] SouthCjpldsumis14-27-7926 11:05-0500Systolic blood djubmwrb331 mm[Hg]Medhat Haas MD Work Phone: [phone] [place], [place] [address]Czheivjzkm10-82-8972 11:01-0400BMI (Body Mass Index)47.62 kg/m3AqaakyBryan [facility]09-17-2019 11:01-0400Body .93 kgLissettEncompass Health Rehabilitation Hospital of York09-17-2019 11:01-0400BP Utslhmjrm24 mm[Hg]Syed Vargas [facility] HOSPITALEIPUNZ66-79-8077 11:010400BP Dgwrfwcu467 mm[Hg]Syed BanegasCarilion [facility]azewell [facility] 05-28-2019 11:2777Snkejz972 cmLgayla [facility]09-17-2019 11:0400 Pulse (Heart Rate)109 /minSyed Medical Center [facility]09-17-2019 11:01-0400Pulse Apxdpjhm80 %Syed BanegasCarilion Tazewell Community HospitalNPZNVU45-28-9843 09:57-0400BMI (Body Mass Index) 47.51 kg/y1LikwpthwAshe [facility]09-17-2019 09:57-0400Body rgybau229.66 kg TonioFormerly [facility]09-17-2019 09:576146Yfmler029 cmEC[facility]05-19-2019 11:23-0400Body Yxoinswxkey26.71 [degF][facility]05-19-2019 11:23-0400BP Syhgdmbgp482 mm[Hg][facility] 01-27-2019 11:23-0400BP Nmwyzzgk433 mm[Hg][facility] HospitalBqkldieeDplzYumvpe44-29-3767 11:23-0400Pulse (Heart Rate)100 /[facility] InstituteEkjufkkgTebqSlwjfe86-66-2590 11:23-0400Pulse Xkfpgebt35 %[facility] HospitalIpymoxigBicyVahsos76-22-3447 11:23-0400 Respiratory Rate16 /[facility] InstituteSgobkxcrXagoKboypj68-37-1312 10:0400BMI (Body Mass Index)36.31 kg/u5IqdrjSpring Valley HospitalGvnstdesSaayRxxihk86-77-9970 10:020719Wsxzxo953 cm [facility] HospitalEguthbdfBvsfPbxocq41-07-7455 10:023904Ranrgf28.99 kgSt[address] [facility]05-05-2019 10:52-0400BP Vummtseys01 mm[Hg][facility] 01-13-2019 10:52-0400BP Weztuiec385 mm[Hg][facility] HospitalZnmjpjnaWhadDkfxln23-43-6234 10:52-0400Pulse (Heart Rate)95 /[facility] InstituteYtgtyfhjMlwdFcfzqx45-52-8123 10:52-0400 Pulse Gycttmgg70 %[facility] HealthcareOshzfngbUnxlUndmnw22-02-7732 10:52-0400Respiratory Rate 18 /minLuis Armando EhouerstEpdnXerxhw53-49-9829 09:36-0400BMI (Body Mass Index)35.96 kg/x0Dwzxq NhizwwznNgpqWbofoj55-15-5567 09:36-0400Body Tkbijysdtks55.1 [degF] Luis Armando SpwawpyjJmvvWlboqw38-72-5542 09:36-3686Sblypq903 cmLuis Armando OliveiraAdams County HospitalIdajPpfswc50-87-5165 09:36-8112Kiujvp54.08 kgLuis Armando [facility] Encounters Encounter DateEncounter TypeCare ProviderFacilityStart: 04-10-2025 End: 20-36-4461Xiftwsqka encounterMedhat Haas MD Work Phone: [facility] [place] Rayo MedinceStart: 04-03-2025 End: 41-61-3546WxisooMdrqzhq EvansvilleDecisionView CI FMComment on above:Attention deficit hyperactivity disorder (ADHD), combined typeStart: 02-12-2025 End: 72-05-2985LuzcfiXwpadis Tej MANOMS CI FMComment on above:Attention deficit hyperactivity disorder (ADHD), combined type ; Sinusitis, unspecified chronicity, unspecified locationStart: 01-16-2025 End: 68-21-3681Qavzznvwn encounterMedhat Haas MD Work Phone: [facility] CI FMStart: 12-09-2024 End: 66-20-6592Eovcff outpatient visit 25 minutesMedhat Haas MD Work Phone: [facility] CI FMComment on above:Lumbar radiculopathy, acute (Primary Dx); Sacral back pain; Sacroiliitis (CMS/HCC)Start: 12-09-2024 End: 43-05-4999rnkiccakbdTWJWG M ALDANot AvailableStart: 11-14-2024 End: 29-20-1820Mcibdb outpatient visit 25 minutesMedhat Haas MD Work Phone: [facility] CI FMComment on above:Weight gain (Primary Dx); Obesity, morbid, BMI 40.0-49.9 (CMS/HCC); Bilateral sciatica; Generalized anxiety disorder (CMS/HCC)Start: 11-14-2024 End: 48-82-2734ehgxdghaocGXRGD M ALDANot AvailableStart: 10-31-2024 End: 18-13-4484Jqtklq Herve Haas MD Work Phone: [facility] CI FMStart: 10-31-2024 End: 12-27-5860Ldrrqu Herve Haas MD Work Phone: [facility] CI FMStart: 10-31-2024 End: 85-04-0310Suwckq outpatient visit 25 minutesMedhat Haas MD Work Phone: [facility] CI FMComment on above:Bilateral sciatica (Primary Dx); Attention deficit hyperactivity disorder (ADHD), combined type (CMS/HCC); Piriformis syndrome of both sides; Grief reaction (CMS/HCC)Start: 10-31-2024 End: 97-08-4887pphmdiolndAHEPX M ALDANot AvailableStart: 09-16-2024 End: 89-19-9688Gwtwmlezf encounterMedhat Haas MD Work Phone: [facility] CI FMStart: 07-22-2024 End: 53-49-9739Rujdggnjx encounterMedhat Haas MD Work Phone: [facility] CI FMStart: 02-27-2024 End: 99-15-6347dkrsrkyaltSJTYF M ALDANot AvailableStart: 02-06-2024 End: 40-83-5153wdbaztnekuDBWNW M ALDANot AvailableStart: 07-22-2019 End: 80-59-1032Xknoam encounterLinden A Alicia Work Phone: [facility]ariat[facility] ClinicStart: 06-27-2019 End: 85-44-0183Gorowq encounterLinden A Alicia Work Phone: [facility]ariat[facility] ClinicStart: 06-19-2019 End: 80-05-8095Rfifgtqrh encounterLinden A Alicia Work Phone: [facility] Bariatric ClinicComment on above:Other Start: 05-28-2019 End: 31-33-2686Zlvxfj outpatient new 45 minutesSyed Vargas Work Phone: [facility] CadenceMD Bariatric ClinicComment on above:Obesity, morbid, BMI 40.0-49.9 (Primary Dx); Depression, unspecified depression type; Anxiety; Gastroesophageal reflux disease, esophagitis presence not specified; Chronic bilateral low back pain with bilateral sciatica; Hyperglycemia; Chronic joint painStart: 05-28-2019 End: 88-73-1752Lbuqrl outpatient new 60 minutesAra Edwards Work Phone: [facility] HospitalDevelopIntelligence [facility] Nutrition and DieteticsComment on above:ArrivedStart: 05-03-2019 End: 60-55-8701Mwokaty encounter procedureOther OtherThe Bellevue Hospitaltart: 01-31-2019 End: 40-12-2635Uzyialp encounter procedureNEIL United Health Servicestart: 01-31-2019 End: 94-74-0021Ammrthtxcq hospital visit by Katerine Rivera Work Phone: [facility] HospitalComment on above:Enlarged thyroidStart: 01-27-2019 End: 05-07-4010Uakssvusb department patient visitPHYBethesda North Hospital Start: 01-27-2019 End: 34-70-6583Rbxhzscsw department patient visitJalaura Meyers Work Phone: [facility] Emergency DepartmentComment on above: Paresthesia (Primary Dx)Start: 01-13-2019 End: 52-35-7448Yygnvxrjr department patient visitMer[facility] Start: 01-13-2019 End: 59-18-1413Knqqyqgdt department patient visitJames Satnam Maurice Work Phone: [facility] Emergency DepartmentComment on above: Flank pain (Primary Dx); Urinary tract infection without hematuria, site unspecifiedStart: 09-10-2018 End: 91-86-3598Racxigd encounter procedurePHYSICIKLAUS Senior HospitalStart: 24-37-9790WssvanodloQTTMUV A CULLENAvita [place] HospitalStart: 01-17-2018 End: 48-02-4677Lgphqgdgy department patient visitLAURIKy TORREvita [place] HospitalStart: 09-06-2017 End: 72-08-8174Jfjtspsdnh and management of inpatientYaneli Rodriguez Facility:[place]: 08-17-2017 End: 31-64-9531XsftswxciwFGWHEVC J BACAKAkron Children's HospitalStart: 06-26-2017 End: 59-19-7074Lopuxhtwt department patient visitNatalai Nash Facility:[place] Procedures DateProcedureProcedure DetailPerforming ClinicianStart: 80-00-6722Px soft tissue head & neck real time imge docmNeil Domi Work Phone: Start: 22-29-2213Jbichfoueg exam chest single view Luis Armando Meyers Work Phone: Start: 88-31-3695PO of head without contrastLuis Armando Meyers Work Phone: Start: 91-45-0186Qwlcetxtewkhmvqcna ( test) [Presence] in UrineLuis Armando Meyers Work Phone: Start: 27-71-0462BeqgsbkhwnIxsgp William Catalano Work Phone: Start: 82-31-8669Ksdxe metabolic 2000 panel - Serum or PlasmaLuis Armando Meyers Work Phone: Start: 22-15-9027Sjzmgrfq blood count with white cell differential, automatedLuis Armando Meyers Work Phone: Start: 10-89-8890Oncphxvu blood count with white cell differential, manualLuis Armando Meyers Work Phone: Start: 63-21-0157Hqbikmc function 2000 panel - Serum or PlasmaLuis Armando Meyers Work Phone: Start: 97-00-5231Bmqfqax [Moles/volume] in Serum or PlasmaLuis Armando Meyers Work Phone: Start: 89-80-759210 lead ECGLuis Armando Meyers Work Phone: Start: 71-83-7693Laojgioshgmtiqhpll ( test) [Presence] in UrineLuis Armando Meyers Work Phone: Start: 80-18-2745ZbkcmauqiiAbsoo William Catalano Work Phone: Plan of Treatment DateCare ActivityDetailAuthorStart: 35-31-0871Ylzaahpie vaccinationNOMS HealthcareStart: 11-14-2024 End: 43-57-7989Nwpomdb encounter bgemaedzt71/06/2025 1:30 PM EST Office Visit [facility] [address] [place] [address] Medhat Haas MD [address] [facility] [address] [place] [address] [facility] CI FMStart: 10-31-2024 End: 97-03-8055Kmvenrk encounter uzltsdggo86/20/2025 11:00 AM EST Office Visit [facility] [address] [place] [address] Medhat Haas MD [address] [facility] [address] [place] [address] ArrivedNOMS CI FMComment on above:ArrivedStart: 05-12-2024 Influenza vaccinationInfluenza Vaccine (#1)[facility] HealthcareStart: 10-14-2019 End: 82-39-1311Sdhnhimupfo03/03/2020 Appointment Nutrition and Dietetics Syed Vargas MD [address] [place] [address] [phone] Agustina Amaral, RD [address] [place], [place] [address]QgesqC[facility] Nutrition and DieteticsStart: 09-12-2019 End: 40-48-4007DaykcyeuqdqWuykrLong Island Hospital Nutrition and DieteticsStart: 08-14-2019 End: 13-69-5554FwpzmqtzaoeEhuzdLong Island Hospital Nutrition and DieteticsStart: 07-16-2019 End: 53-78-8016VtrvwulandgNsyghLong Island Hospital Nutrition and DieteticsStart: 07-04-2019 End: 02-76-6024Sldpzwgc EncounterInspira Medical Center [facility] Endoscopy ClinicComment on above: GERD (gastroesophageal reflux disease)EGD DIAGNOSTICStart: 07-02-2019 End: 10-49-8229Kksbuw Visit07/02/2019 Office Visit Pulmonary Disease Terrence Joshi MD [address] [facility] 1[address] [place], [id number] [facility] GalionStart: 06-13-2019 End: 25-10-3276Mptxabsvffk46/03/2019 Appointment Nutrition and Dietetics Syed Vargas MD [address] [place] [address] [phone] [place] [phone] [facility] Nutrition and DieteticsStart: 05-28-2019 End: 36-69-0616T85 & BEPQLSY72 & FOLATE Lab Routine Obesity, morbid, BMI 40.0- 49.9 Depression, unspecified depression typeAnxiety Gastroesophageal reflux disease, esophagitis presence not specified Chronic bilateral low back pain with bilateral sciatica Hyperglycemia Chronic joint pain Expected: 05/28/2019, Expires: 05/28/2020[facility] HOSPITALComment on above:Expected: 05/28/2019, Expires: 05/28/2020Start: 05-28-2019 End: 47-08-0321EBN, EDIF, PLATELETCBC, EDIF, PLATELET Lab Routine Obesity, morbid, BMI 40.0-49.9 Depression, unspecified depression type Anxiety Gastroesophageal reflux disease, esophagitis presence not specified Chronic bilateral low back pain with bilateral sciatica Hyperglycemia Chronic joint pain Expected: 05/28/2019, Expires: 05/28/2020[facility] HOSPITALComment on above:Expected: 05/28/2019, Expires: 05/28/2020Start: 05-28-2019 End: 37-95-8792Hainzsouiaapi metabolic 2000 panelCOMPREHENSIVE METABOLIC PANEL Lab Routine Obesity, morbid, BMI 40.0-49.9 Depression, unspecified depression type Anxiety Gastroesophageal reflux disease, esophagitis presence not specified Chronic bilateral low back pain with bilateral sciatica Hyperglycemia Chronic joint pain Expected: 05/28/2019,Expires: 05/28/2020[facility] on above: Expected: 05/28/2019, Expires: 05/28/2020Start: 05-28-2019 End: 61-68-9436XsZ2b (Bld) [Mass fraction]HEMOGLOBIN A1C Lab Routine Obesity, morbid, BMI 40.0-49.9 Depression, unspecified depression type Anxiety Gastroesophageal reflux disease, esophagitis presence not specified Chronic bilateral low back pain with bilateral sciatica Hyperglycemia Chronic joint pain Expected: 05/28/2019, Expires: 05/28/2020[facility] Hospitalment on above:Expected: 05/28/2019, Expires: 05/28/2020Start: 05-28-2019 End: 61-00-5846GMBL/IRON BINDING/TRANSFERRINIRON/IRON BINDING/TRANSFERRIN Lab Routine Obesity, morbid, BMI 40.0-49.9 Depression, unspecified depression type Anxiety Gastroesophageal reflux disease, esophagitis presence not specified Chronic bilateral low back pain with bilateral sciatica Hyperglycemia Chronic joint pain Expected: 05/28/2019,Expires: 05/28/2020[facility] Hospitalment on above: Expected: 05/28/2019, Expires: 05/28/2020Start: 05-28-2019 End: 41-64-6715UYLKZ PANEL W CALCULATED LDLLIPID PANEL W CALCULATED LDL Lab Routine Obesity, morbid, BMI 40.0-49.9 Depression, unspecified depression type Anxiety Gastroesophageal reflux disease, esophagitis presence not specified Chronic bilateral low back pain with bilateral sciatica Hyperglycemia Chronic joint pain Expected: 05/28/2019, Expires: 05/28/2020[facility] on above:Expected: 05/28/2019, Expires: 05/28/2020Start: 67-08-1106Ootvjjlps Pass 05/28/2019 Procedure Pass [facility]oscopyInspira [facility] Centertart: 05-28-2019 End: 13-18-1260MEY QnTSH Lab Routine Obesity, morbid, BMI 40.0-49.9 Depression, unspecified depression type Anxiety Gastroesophageal reflux disease, esophagitis presence not specified Chronic bilateral low back pain withbilateral sciatica Hyperglycemia Chronic joint pain Expected: 05/28/2019, Expires: 05/28/2020[facility] on above:Expected: 05/28/2019, Expires: 05/28/2020Start: 05-28-2019 End: 13-39-1488HYRIQRH T8AHZUVXZ B1 Lab Routine Obesity, morbid, BMI 40.0-49.9 Depression, unspecified depression type Anxiety Gastroesophageal reflux disease, esophagitis presence not specified Chronic bilateral low back pain with bilateral sciatica Hyperglycemia Chronic joint pain Expected: 05/28/2019, Expires: 05/28/2020[facility] HEALTHComment on above:Expected: 05/28/2019, Expires: 05/28/2020Start: 05-28-2019 End: 21-84-7632UHGVNAC D (25-HYDROXY,TOTAL)VITAMIN D (25-HYDROXY,TOTAL) Lab Routine Obesity, morbid, BMI 40.0-49.9 Depression, unspecified depression type Anxiety Gastroesophageal reflux disease, esophagitis presence not specified Chronic bilateral low back pain with bilateral sciatica Hyperglycemia Chronic joint pain Expected: 05/28/2019, Expires: 05/28/2020[facility] HEALTHComment on above:Expected: 05/28/2019, Expires: 05/28/2020Start: 05-28-2019 End: 22-63-2453IFEU, SERUMZINC, SERUM Lab Routine Obesity, morbid, BMI 40.0-49.9 Depression, unspecified depression type Anxiety Gastroesophageal reflux disease, esophagitis presence not specified Chronic bilateral low back pain with bilateral sciatica Hyperglycemia Chronic joint pain Expected: 05/28/2019, Expires: 05/28/2020[facility] HEALTHComment on above:Expected: 05/28/2019, Expires: 05/28/2020Start: 05-23-2019 End: 02-38-5609Qtmrlv Visit05/23/2019 Office Visit General Surgery Syed Vargas MD [address] [place] [address] [phone] [facility] Bariatric ClinicStart: 56-72-8925Pchasvnmo vaccinationINFLUENZA VACCINE (#1)[facility]ICtart: 88-20-0862Bbhrwhejs vaccination given SEQUENTIAL INFLUENZA VACCINE (Season Ended)[facility] DakotaHealthStart: 03-13-2019 End: 08-90-8026Vtspgk Visit03/13/2019 Office Visit Primary Care Randy Rivera MD [address] [place] [address] [phone] [facility]Start: 62-55-4065Cvlfjeeel for malignant neoplasm of cervixNOMS HealthcareStart: 01-29-2019 End: 79-59-7842Nwmuhf Visit01/29/2019 Office Visit Primary Care Randy Rivera MD [address] [place] [address] [phone] [facility] CenterStart: 83-62-8904Lafaobcbc for malignant neoplasm of cervixNOMS HealthcareStart: 37-57-9879Iqzpl diphtheria, tetanus and acellular pertussis (DTaP) vaccinationTDAP (ADULT)OSOHIOHEALTH ARTHUR G.[facility]. [facility], CANCER CENTERtart: 62-07-3477Ogxnmex vaccinationTETANUSOSOHIOHEALTH ARTHUR G.H[facility], CANCER CENTERtart: 2002 HIV screeningHIV SCREENING DISCUSSIONOSOHIOHEALTH ARTHUR G.H. BING, MD, CANCER CENTERtart: 02-14-1992 History and physical examination, annual for health maintenanceRiddle Hospitalness Visit [facility]HealthStart: 68-38-9291Ilwwhepuz for malignant neoplasm of cervixPAP SMEAR [facility]HealthStart: 73-65-6593Fctllrl vaccinationTETANUS EVERY 10 YROhioHealth End: 10-05-2184Jowdvhgb identified Aer cx Nom (Unsp spec)Urine Aerobic Culture Routine Once for 1 Occurrences starting 01/13/2019 until 01/13/2019[facility] Comment on above:Once for 1 Occurrences starting 01/13/2019 until 01/13/2019 Bacteria identified Aer cx Nom (Unsp spec)Urine Aerobic Culture Routine 01/13/2019 9:51 AM EDTOhiMedina Hospital End: 13-57-5657Kijoqseg identified Aer cx Nom (Unsp spec)Urine Aerobic Culture Microbiology Routine Once for 1 Occurrences starting 01/27/2019 until 01/27/2019 [facility]HealthComment on above:Once for 1 Occurrences starting 01/27/2019 until 01/27/2019 End: 90-65-3487Kbmqdihz identified Cx Nom (Bld)Blood Culture Aerobic/Anaerobic Microbiology Routine Once for 1 Occurrences starting 01/27/2019 until 01/27/2019 [facility]HealthComment on above:Once for 1 Occurrences starting 01/27/2019 until 01/27/2019Bacteria identified Cx Nom (Bld)Blood Culture Aerobic/Anaerobic Microbiology Routine 01/27/2019 10:29 AM EDTOhioHealthCT of head without contrastCT Head Or Brain Without Contrast Imaging STAT 01/27/2019 10:49 AM EDT [facility] ECGECG ECG Routine Obesity, morbid, BMI 40.0-49.9 Depression, unspecified depression type Anxiety Gastroesophageal reflux disease, esophagitis presence not specified Chronic bilateral low back pain withbilateral sciatica Hyperglycemia Chronic joint pain Ordered: 05/28/2019[facility] HOSPITALComment on above:Ordered: 05/28/2019 Payers DatePayer CategoryPayerPolicy [id number] [place] Blue [id number] [id number] Health InsuranceCARESOOKLAHOMA STATE UN[facility]ERS[facility] MEDICAID [id number] [id number] [id number] 2018Medicaidxxxxxxxxx [id number] [id number] 20.1.771465.3.57[id number] 20.1.988094.3.57[id number] 2.16.840.1.038963.3.57[id number] 2.16.840.1.079838.3.57[id number] 2.16.840.1.090339.3.57[id number] 2.16.840.1.369193.3.579.2.[id number] 2.16.840.1.506463.3.57[id number] 2.16.840.1.453839.3.579.2.1259 Social History DateTypeDetailFacilityStart: 01-13-2019 End: 57-19-9032Reugdtj smoking status NHISFormer smokerNOMS HealthcareSex Assigned At BirthNot on fileOhioHealthStart: 12-14-2009 End: 46-74-3381Dszihel of tobacco useCurrent smokerAVITA HEALTHStart: 12-14-2009 End: 92-56-4530Gabxglx of tobacco useCigarette SmokerCLEVELAND CLINIC FOUNDATION Start: 05-28-2019 End: 85-07-6397Onsikhckln smoked current (pack per day) - ReportedNOMS HealthcareStart: 05-28-2019 End: 62-75-2714Blavfee intakeNoNOMS HealthcareStart: 23-00-7514Dhqjirx intake Current non-drinker of alcohol (finding)[facility] HEALTHStart: 21-02-0079Urmuucb smoking status NHISCurrent every day smokerMARIETTA OSTEOPATHIC CLINICtart: 02-06-2024 End: 57-59-9299Qvxdqqk use and exposureSmokeless tobacco non-userNOMS Healthcare Start: 02-20-2024 End: 38-17-0868Ftoyypmpp beverage intakeEx-drinker (finding)[facility] Within the last year, have you been afraid of your partner or ex-partner?NoNOMS HealthcareAre you now , , , , never or living with a partner?Patient declinedNOMS HealthcareHow often to you have a drink containing alcohol?Monthly or lessNOMS HealthcareHow many standard drinks containing alcohol do you have on a typical day?1 or 2NOMS HealthcareHow often do you have 6 or more drinks on 1 occasion?NeverNOMS HealthcareDo you feel stress - tense, restless, nervous, or anxious, or unable to sleep at night because yourmind is troubled all the time - these days [OSQ]To some extentNOMS Healthcare(I/We) worried whether (my/our) food would run out before (I/we) got money to buy more.Never trueNOOH HealthcareStart: 25-58-0817Lgo assigned at birthFeEdgewood Surgical HospitalStart: 77-46-7671Sertjm identityIdentifies as female gender (finding)[facility] HealthcareStart: 77-60-0403Ptjkmy orientationHeterosexual (finding)[facility] HealthcareAre you now , , , , never or living with a partner?Living with partnerNORusk Rehabilitation Center Clinical Notes 07-22-2024 to 04-10-2025 Note Date & CpatVdrbIdeolopm57-37-2088 Telephone encounter Note* Telephone Encounter - Medhat Haas MD - 04/10/2025 1:05 PM EDT Informed patient needs an appoinment [facility] SouthCyxbsfqqnw41-35-3489 Miscellaneous Notes* Telephone Encounter - Medhat Haas MD - 04/10/2025 1:05 PM EDT Informed patient needs an appoinment documented in this encounterCox SouthSnetajpggw67-67-3760 Telephone encounter Note* Telephone Encounter - MICHAEL Ward - 04/03/2025 6:45 PM EDT Patient needs an appointment. Refill on ADHD medication denied. We have been unable to contact patient. [facility] SouthEbiyjcuigk02-60-4929 Miscellaneous Notes* Telephone Encounter - MICHAEL Ward - 04/03/2025 6:45 PM EDT Patient needs an appointment. Refill on ADHD medication denied. We have been unable to contact patient. documented in this encounterCox SouthBnkcjvrrah00-87-2452 Telephone encounter Note* Telephone Encounter - Ca Copeland - 02/24/2025 10:53 AM EDT Lvm - 3rd attempt to contact, no contact letter sent [facility] SouthAhheszjopm86-93-3013 Miscellaneous Notes* Telephone Encounter - Ca Copeland - 02/24/2025 10:53 AM EDT Lvm - 3rd attempt to contact, no contact letter sent * Telephone Encounter - Ca Copeland - 02/20/2025 9:11 AM EDT Lvm * Telephone Encounter - Ca Copeland - 2025 1:22 PM EDT Lvm * Telephone Encounter - MICHAEL Ward - 02/12/2025 2:47 PM EDT OARRS reviewed, Rx sent into patient's pharmacy. Please help pt get set up with Dr. Haas for controlled medication follow up at the end of this month. Thank you. documented in this encounterCox SouthSkbsoeggwt92-63-1394 Telephone encounter Note* Telephone Encounter - Cadev Copeland - 02/20/2025 9:11 AM EDT Lvm [facility] SouthFirvctcyhb94-17-7289 Telephone encounter Note* Telephone Encounter - Cadev Copeland - 2025 1:22 PM EDT Lvm [facility] SouthLeteriusle12-63-4815 Telephone encounter Note* Telephone Encounter - MICHAEL Ward - 02/12/2025 2:47 PM EDT OARRS reviewed, Rx sent into patient's pharmacy. Please help pt get set up with Dr. Haas for controlled medication follow up at the end of this month. Thank you. [facility] SouthNituegeazx38-53-9679 Telephone encounter Note* Telephone Encounter - Medhat Haas MD - 01/16/2025 1:13 PM EDT Patient has URI requesting a ZPAk [facility] SouthTcyctzujie39-88-0532 Miscellaneous Notes* Telephone Encounter - Medhat Haas MD - 01/16/2025 1:13 PM EDT Patient has URI requesting a ZPAk documented in this encounterCox SouthTicpabeugf59-24-0914 History of Present illness Narrative* Medhat Haas MD - 12/09/2024 2:53 PM EDTAssociated Problem(s): Sacroiliitis (CMS/HCC) Needs PT if NB Consider MRI * Medhat Haas MD - 12/09/2024 2:30 PM EDT Images from the original note were not included. Subjective Patient ID: Neno Ortiz is a 34 y.o. female who presents for Sciatica. Has tailbone pain, sciatica pt has not taken medrol evaristo , pt stated that the last week and half hasbeen the worst Heating pad , ibprofen she has been using Pt states that the pain will radiate down both of her legs Pt just started mounjaro a two days ago No fall Stands on mats and rotates and has back pain Some pain in back of legs and up back Current Outpatient Medications on File Prior to Visit Medication Sig Dispense Refill ALPRAZolam (Xanax) 0.5 MG tablet Take 1 tablet (0.5 mg) by mouth in the morning and 1 tablet (0.5 mg) before bedtime. 60 tablet 0 amphetamine-dextroamphetamine (Adderall) 20 MG tablet Take 1 tablet (20 mg) by mouth Daily 30 tablet 0 methylPREDNISolone (Medrol Dospak) 4 MG tablets Follow schedule on package instructions 21 tablet 0 Tirzepatide (Mounjaro) 2.5 MG/0.5ML solution auto-injector Inject 2.5 mg under the skin 1 (one) time per week 0.5 mL 0 No current facility-administered medications on file prior to visit. I have reviewed and reconciled the history and medication list with the patient today. Allergies Allergen Reactions Acetaminophen Rash Social History Tobacco Use Smoking status: Former Current packs/day: 0.00 Average packs/day: 0.5 packs/day for 13.2 years (6.6 ttl pk-yrs) Types: Cigarettes Start date: 12/14/2009 Quit date: 03/11/2023 Years since quittin.7 Smokeless tobacco: Never Substance Use Topics Alcohol use: Not Currently Drug use: Never Family History Problem Relation Name Age of Onset Hypertension Mother Mom Hyperlipidemia Father Dad Past Medical History: Diagnosis Date ADHD (attention deficit hyperactivity disorder) (CMS/HCC) Anxiety Depression (CMS/HCC) Past Surgical History: Procedure Laterality Date SECTION, LOW TRANSVERSE 2017 TONSILLECTOMY 2012 Visit Vitals BP 122/86 Pulse 93 Ht 5' 2 Wt 252 lb SpO2 97% BMI 46.09 kg/m Smoking Status Former BSA 2.23 m Review of Systems Gastrointestinal: Negative for abdominal pain and constipation. Genitourinary: Negative for enuresis and frequency. Musculoskeletal: Negative for joint swelling. Objective Physical Exam Constitutional: Appearance: Normal appearance. Musculoskeletal: Back: Comments: POP to SI Right worse on left and tight lumbar area Neurological: Mental Status: She is alert. Assessment/Plan Problem List Items Addressed This Visit Lumbar radiculopathy, acute - Primary Relevant Medications baclofen (Lioresal) 10 MG tablet Sacral back pain Relevant Medications baclofen (Lioresal) 10 MG tablet Sacroiliitis (CMS/HCC) Needs PT if NB Consider MRI No follow-ups on file. [id number] History of Present illness Narrative* Medhat Haas MD - 11/14/2024 1:52 PM ESTAssociated Problem(s): Bilateral sciatica Improved she is stretching * Medhat Haas MD - 11/14/2024 1:51 PM ESTAssociated Problem(s): Generalized anxiety disorder (CMS/HCC) Patient's Medicine is effective at controlling symptoms at current dose and frequency. PDMP reviewed with no evidence of overuse and abuse D/W patient to avoid use of benzodiazepines when consuming alcohol Advised against operating heavy machinery and driving long distances while on medicines. * Medhat Haas MD - 11/14/2024 1:30 PM EST Images from the original note were not included. HPI Depression Additional comments: grief Last edited by Nel Burnham MA on 11/14/2024 11:23 AM. Subjective Patient ID: Neno Ortiz is a 34 y.o. female who presents for Depression (grief). Pt is doing better and medication is doing ok for pt Put in bid for AM, hopefully soon Ready to go back to work Depression Visit Type: follow-up Patient presents with the following symptoms: depressed mood. Severity: moderate Current Outpatient Medications on File Prior to Visit Medication Sig Dispense Refill ALPRAZolam (Xanax) 0.5 MG tablet Take 1 tablet (0.5 mg) by mouth in the morning and 1 tablet (0.5 mg) before bedtime. 60 tablet 0 amphetamine-dextroamphetamine (Adderall) 20 MG tablet Take 1 tablet (20 mg) by mouth Daily 30 tablet 0 No current facility-administered medications on file prior to visit. I have reviewed and reconciled the history and medication list with the patient today. Allergies Allergen Reactions Acetaminophen Rash Social History Tobacco Use Smoking status: Former Current packs/day: 0.00 Average packs/day: 0.5 packs/day for 13.2 years (6.6 ttl pk-yrs) Types: Cigarettes Start date: 12/14/2009 Quit date: 03/11/2023 Years since quittin.6 Smokeless tobacco: Never Substance Use Topics Alcohol use: Not Currently Drug use: Never Family History Problem Relation Name Age of Onset Hypertension Mother Mom Hyperlipidemia Father Dad Past Medical History: Diagnosis Date ADHD (attention deficit hyperactivity disorder) ([facility]) Anxiety Depression ([facility]) Past Surgical History: Procedure Laterality Date SECTION, LOW TRANSVERSE 2017 TONSILLECTOMY 2012 Visit Vitals BP 122/88 Pulse 99 Ht 5' 2 Wt 244 lb SpO2 98% BMI 44.63 kg/m Smoking Status Former BSA 2.2 m Review of Systems Gastrointestinal: Negative for constipation and diarrhea. Psychiatric/Behavioral: Positive for depression. Negative for agitation. Objective Physical Exam Constitutional: General: She is not in acute distress. Appearance: Normal appearance. HENT: Head: Normocephalic. Pulmonary: Effort: Pulmonary effort is normal. No respiratory distress. Breath sounds: Normal breath sounds. Musculoskeletal: Legs: Comments: POP to both Piriformis muscles Neurological: General: No focal deficit present. Mental Status: She is alert and oriented to person, place, and time. Psychiatric: Mood and Affect: Mood normal. Assessment/Plan Problem List Items Addressed This Visit Generalized anxiety disorder (CMS/HCC) Patient's Medicine is effective at controlling symptoms at current dose and frequency. PDMP reviewed with no evidence of overuse and abuse D/W patient to avoid use of benzodiazepines when consuming alcohol Advised against operating heavy machinery and driving long distances while on medicines. Obesity, morbid, BMI 40.0-49.9 (CMS/HCC) Relevant Medications Tirzepatide (Mounjaro) 2.5 MG/0.5ML solution auto-injector Bilateral sciatica Improved she is stretching Weight gain - Primary Relevant Medications Tirzepatide (Mounjaro) 2.5 MG/0.5ML solution auto-injector No follow-ups on file. documented in this encounterC[id number] History of Present illness Narrative* Medhat Haas MD - 10/31/2024 11:29 AM ESTAssociated Problem(s): Attention deficit hyperactivity disorder ([facility]) Patient's Current ADD is controlled with current dose No evidence of overuse or abuse Weight has been stable Encouraged Medication Holidays PDMP reviewed F/U routinely every 3 months * Medhat Haas MD - 10/31/2024 11:28 AM ESTAssociated Problem(s): Grief reaction ([facility]/HCC) Patient's Medicine is effective at controlling symptoms at current dose and frequency. PDMP reviewed with no evidence of overuse and abuse D/W patient to avoid use of benzodiazepines when consuming alcohol Advised against operating heavy machinery and driving long distances while on medicines. * Medhat Haas MD - 10/31/2024 11:21 AM ESTAssociated Problem(s): Piriformis syndrome of both sides Stretching exercises shown * Medhat Haas MD - 10/31/2024 11:21 AM ESTAssociated Problem(s): Bilateral sciatica Stretching exercises * Medhat Haas MD - 10/31/2024 11:00 AM EST Images from the original note were not included. HPI Depression Additional comments: FMLA Last edited by Nel Burnham MA on 10/31/2024 10:59 AM. Subjective Patient ID: Neno Ortiz is a 34 y.o. female who presents for Depression (FMLA). 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 [employer] works 3rd shift. Off October 21 Return to work on November 18 Has tailbone pain Current Outpatient Medications on File Prior to Visit Medication Sig Dispense Refill [DISCONTINUED] amphetamine-dextroamphetamine (Adderall) 20 MG tablet Take 1 tablet (20 mg) by mouthDaily 30 tablet 0 [DISCONTINUED] amphetamine-dextroamphetamine (Adderall) 20 MG tablet Take 1 tablet (20 mg) by mouthDaily 30 tablet 0 [DISCONTINUED] DULoxetine (Cymbalta) [address] capsule Take 60 mg by mouth in the morning. Do not crush or chew. . [DISCONTINUED] hydroCHLOROthiazide (HYDRODiuril) 25 MG tablet Take 1 tablet (25 mg) by mouth Daily 30 tablet 11 No current facility-administered medications on file prior to visit. I have reviewed and reconciled the history and medication list with the patient today. Allergies Allergen Reactions Acetaminophen Rash Social History Tobacco Use Smoking status: Former Current packs/day: 0.00 Average packs/day: 0.5 packs/day for 13.2 years (6.6 ttl pk-yrs) Types: Cigarettes Start date: 12/14/2009 Quit date: 03/11/2023 Years since quittin.6 Smokeless tobacco: Never Substance Use Topics Alcohol use: Not Currently Drug use: Never Family History Problem Relation Name Age of Onset Hypertension Mother Mom Hyperlipidemia Father Dad Past Medical History: Diagnosis Date ADHD (attention deficit hyperactivity disorder) (CMS/HCC) Anxiety Depression (CMS/HCC) Past Surgical History: Procedure Laterality Date SECTION, LOW TRANSVERSE 2017 TONSILLECTOMY 2012 Visit Vitals BP 124/88 Pulse 99 Ht 5' 2 Wt 236 lb SpO2 98% BMI 43.16 kg/m Smoking Status Former BSA 2.16 m Review of Systems Constitutional: Negative for chills, fatigue, fever and unexpected weight change. Respiratory: Negative for cough. Cardiovascular: Negative for chest pain. Gastrointestinal: Negative for nausea. Still complains of some left sided abdominal pain especially after eating certain foods. Genitourinary: Negative for dysuria, enuresis, frequency and hematuria. Musculoskeletal: Negative for back pain. Neurological: Negative for dizziness, tremors, syncope, facial asymmetry and speech difficulty. Psychiatric/Behavioral: Positive for agitation, behavioral problems and dysphoric mood. Negative for confusion. The patient is nervous/anxious. Objective Physical Exam Constitutional: General: She is not in acute distress. Appearance: Normal appearance. HENT: Head: Normocephalic. Pulmonary: Effort: Pulmonary effort is normal. No respiratory distress. Breath sounds: Normal breath sounds. Musculoskeletal: Legs: Comments: POP to both Piriformis muscles Neurological: General: No focal deficit present. Mental Status: She is alert and oriented to person, place, and time. Psychiatric: Mood and Affect: Mood normal. Assessment/Plan Problem List Items Addressed This Visit Attention deficit hyperactivity disorder (CMS/HCC) Patient's Current ADD is controlled with current dose No evidence of overuse or abuse Weight has been stable Encouraged Medication Holidays PDMP reviewed F/U routinely every 3 months Relevant Medications amphetamine-dextroamphetamine (Adderall) 20 MG tablet Bilateral sciatica - Primary Stretching exercises Piriformis syndrome of both sides Stretching exercises shown Grief reaction (CMS/HCC) Patient's Medicine is effective at controlling symptoms at current dose and frequency. PDMP reviewed with no evidence of overuse and abuse D/W patient to avoid use of benzodiazepines when consuming alcohol Advised against operating heavy machinery and driving long distances while on medicines. Relevant Medications ALPRAZolam (Xanax) 0.5 MG tablet Follow up in about 4 weeks (around 11/28/2024). documented in this [facility]11-11-2024 Telephone encounter Note* Telephone Encounter - Medhat Haas MD - 07/22/2024 9:02 AM EST [facility]ill [id number] Miscellaneous Notes* Telephone Encounter - Medhat Haas MD - 07/22/2024 9:02 AM EST Needs refill documented in this [facility]Evaluation [facility]* Diagnosis Attention deficit disorder (ADD) without hyperactivity- Primary Attention deficit hyperactivity disorder (ADHD), combined type (CMS/HCC) Weight gain Other symptoms concerning nutrition, metabolism, and development Obesity, morbid, BMI 40.0-49.9 (CMS/HCC) Attention deficit disorder (ADD) without hyperactivity- Primary Morbid (severe) obesity due to excess calories (E66.01) Chronic gastritis without bleeding, unspecified gastritis type Attention deficit hyperactivity disorder (ADHD), predominantly inattentive type (CMS/HCC) Elevated blood pressure reading Elevated blood pressure reading without diagnosis of hypertension COVID-19 Elevated blood pressure reading- Primary Elevated blood pressure reading without diagnosis of hypertension Hyperglycemia Other abnormal glucose Attention deficit hyperactivity disorder (ADHD), combined type (CMS/HCC) documented in this encounter [facility] HealthcareEvaluation [facility]* Diagnosis Attention deficit disorder (ADD) without hyperactivity- Primary Attention deficit hyperactivity disorder (ADHD), combined type (CMS/HCC) Weight gain Other symptoms concerning nutrition, metabolism, and development Obesity, morbid, BMI 40.0-49.9 (CMS/HCC) Attention deficit disorder (ADD) without hyperactivity- Primary Morbid (severe) obesity due to excess calories (E66.01) Chronic gastritis without bleeding, unspecified gastritis type Attention deficit hyperactivity disorder (ADHD), predominantly inattentive type (CMS/HCC) Elevated blood pressure reading Elevated blood pressure reading without diagnosis of hypertension COVID-19 Elevated blood pressure reading- Primary Elevated blood pressure reading without diagnosis of hypertension Hyperglycemia Other abnormal glucose Attention deficit hyperactivity disorder (ADHD), combined type (CMS/HCC) Morbid (severe) obesity due to excess calories (E66.01) documented in this encounter [facility]* Diagnosis Attention deficit disorder (ADD) without hyperactivity- Primary Attention deficit hyperactivity disorder (ADHD), combined type (CMS/HCC) Weight gain Other symptoms concerning nutrition, metabolism, and development Obesity, morbid, BMI 40.0-49.9 (CMS/HCC) Attention deficit disorder (ADD) without hyperactivity- Primary Morbid (severe) obesity due to excess calories (E66.01) Chronic gastritis without bleeding, unspecified gastritis type Attention deficit hyperactivity disorder (ADHD), predominantly inattentive type (CMS/HCC) Elevated blood pressure reading Elevated blood pressure reading without diagnosis of hypertension COVID-19 Elevated blood pressure reading- Primary Elevated blood pressure reading without diagnosis of hypertension Hyperglycemia Other abnormal glucose Bilateral sciatica- Primary Sciatica Attention deficit hyperactivity disorder (ADHD), combined type (CMS/HCC) Piriformis syndrome of both sides Grief reaction (CMS/HCC) Adjustment disorder with depressed mood documented in this encounter [facility]* Diagnosis Attention deficit disorder (ADD) without hyperactivity- Primary Attention deficit hyperactivity disorder (ADHD), combined type (CMS/HCC) Weight gain Other symptoms concerning nutrition, metabolism, and development Obesity, morbid, BMI 40.0-49.9 (CMS/HCC) Attention deficit disorder (ADD) without hyperactivity- Primary Morbid (severe) obesity due to excess calories (E66.01) Chronic gastritis without bleeding, unspecified gastritis type Attention deficit hyperactivity disorder (ADHD), predominantly inattentive type (CMS/HCC) Elevated blood pressure reading Elevated blood pressure reading without diagnosis of hypertension COVID-19 Elevated blood pressure reading- Primary Elevated blood pressure reading without diagnosis of hypertension Hyperglycemia Other abnormal glucose Bilateral sciatica- Primary Sciatica Attention deficit hyperactivity disorder (ADHD), combined type (CMS/HCC) Piriformis syndrome of both sides Grief reaction (CMS/HCC) Adjustment disorder with depressed mood Weight gain- Primary Other symptoms concerning nutrition, metabolism, and development Obesity, morbid, BMI 40.0-49.9 (CMS/HCC) Bilateral sciatica Sciatica Generalized anxiety disorder (CMS/HCC) Generalized anxiety disorder documented in this encounter [facility]* Diagnosis Attention deficit disorder (ADD) without hyperactivity- Primary Attention deficit hyperactivity disorder (ADHD), combined type (CMS/HCC) Weight gain Other symptoms concerning nutrition, metabolism, and development Obesity, morbid, BMI 40.0-49.9 (CMS/HCC) Attention deficit disorder (ADD) without hyperactivity- Primary Morbid (severe) obesity due to excess calories (E66.01) Chronic gastritis without bleeding, unspecified gastritis type Attention deficit hyperactivity disorder (ADHD), predominantly inattentive type (CMS/HCC) Elevated blood pressure reading Elevated blood pressure reading without diagnosis of hypertension COVID-19 Elevated blood pressure reading- Primary Elevated blood pressure reading without diagnosis of hypertension Hyperglycemia Other abnormal glucose Bilateral sciatica- Primary Sciatica Attention deficit hyperactivity disorder (ADHD), combined type (CMS/HCC) Piriformis syndrome of both sides Grief reaction Adjustment disorder with depressed mood Weight gain- Primary Other symptoms concerning nutrition, metabolism, and development Obesity, morbid, BMI 40.0-49.9 (CMS/HCC) Bilateral sciatica Sciatica Generalized anxiety disorder (CMS/HCC) Generalized anxiety disorder Lumbar radiculopathy, acute- Primary Sacral back pain Disorders of sacrum Sacroiliitis (CMS/HCC) Sacroiliitis, not elsewhere classified documented in this encounter [facility]* Diagnosis Attention deficit disorder (ADD) without hyperactivity- Primary Attention deficit hyperactivity disorder (ADHD), combined type (CMS/HCC) Weight gain Other symptoms concerning nutrition, metabolism, and development Obesity, morbid, BMI 40.0-49.9 (CMS/HCC) Attention deficit disorder (ADD) without hyperactivity- Primary Morbid (severe) obesity due to excess calories (E66.01) Chronic gastritis without bleeding, unspecified gastritis type Attention deficit hyperactivity disorder (ADHD), predominantly inattentive type (CMS/HCC) Elevated blood pressure reading Elevated blood pressure reading without diagnosis of hypertension COVID-19 Elevated blood pressure reading- Primary Elevated blood pressure reading without diagnosis of hypertension Hyperglycemia Other abnormal glucose Bilateral sciatica- Primary Sciatica Attention deficit hyperactivity disorder (ADHD), combined type (CMS/HCC) Piriformis syndrome of both sides Grief reaction Adjustment disorder with depressed mood Weight gain- Primary Other symptoms concerning nutrition, metabolism, and development Obesity, morbid, BMI 40.0-49.9 (CMS/HCC) Bilateral sciatica Sciatica Generalized anxiety disorder (CMS/HCC) Generalized anxiety disorder Lumbar radiculopathy, acute- Primary Sacral back pain Disorders of sacrum Sacroiliitis ([facility]/HCC) Sacroiliitis, not elsewhere classified Viral upper respiratory tract infection- Primary Acute upper respiratory infections of unspecified site documented in this encounter [facility]* Diagnosis Attention deficit disorder (ADD) without hyperactivity- Primary Attention deficit hyperactivity disorder (ADHD), combined type Weight gain Other symptoms concerning nutrition, metabolism, and development Obesity, morbid, BMI 40.0-49.9 ([facility]) Attention deficit disorder (ADD) without hyperactivity- Primary Morbid (severe) obesity due to excess calories (E66.01) Chronic gastritis without bleeding, unspecified gastritis type Attention deficit hyperactivity disorder (ADHD), predominantly inattentive type Elevated blood pressure reading Elevated blood pressure reading without diagnosis of hypertension COVID-19 Elevated blood pressure reading- Primary Elevated blood pressure reading without diagnosis of hypertension Hyperglycemia Other abnormal glucose Bilateral sciatica- Primary Sciatica Attention deficit hyperactivity disorder (ADHD), combined type Piriformis syndrome of both sides Grief reaction Adjustment disorder with depressed mood Weight gain- Primary Other symptoms concerning nutrition, metabolism, and development [place]esity, morbid, [place] 40.0-49.9 [place] [place] Bilateral sciatica Sciatica Generalized anxiety disorder Generalized anxiety disorder Lumbar radiculopathy, acute- Primary Sacral back pain Disorders of sacrum Sacroiliitis Sacroiliitis, not elsewhere classified Attention deficit hyperactivity disorder (ADHD), combined type Sinusitis, unspecified chronicity, unspecified location documented in this encounter [facility]* Diagnosis Attention deficit disorder (ADD) without hyperactivity- Primary Attention deficit hyperactivity disorder (ADHD), combined type Weight gain Other symptoms concerning nutrition, metabolism, and development Obesity, morbid, BMI 40.0-49.9 ([facility]) Attention deficit disorder (ADD) without hyperactivity- Primary Morbid (severe) obesity due to excess calories (E66.01) Chronic gastritis without bleeding, unspecified gastritis type Attention deficit hyperactivity disorder (ADHD), predominantly inattentive type Elevated blood pressure reading Elevated blood pressure reading without diagnosis of hypertension COVID-19 Elevated blood pressure reading- Primary Elevated blood pressure reading without diagnosis of hypertension Hyperglycemia Other abnormal glucose Bilateral sciatica- Primary Sciatica Attention deficit hyperactivity disorder (ADHD), combined type Piriformis syndrome of both sides Grief reaction Adjustment disorder with depressed mood Weight gain- Primary Other symptoms concerning nutrition, metabolism, and development Obesity, morbid, BMI 40.0-49.9 ([facility]) Bilateral sciatica Sciatica Generalized anxiety disorder Generalized anxiety disorder Lumbar radiculopathy, acute- Primary Sacral back pain Disorders of sacrum Sacroiliitis Sacroiliitis, not elsewhere classified Attention deficit hyperactivity disorder (ADHD), combined type documented in this encounter [facility] HealthcareEvaluation note* Diagnosis Attention deficit disorder (ADD) without hyperactivity- Primary Attention deficit hyperactivity disorder (ADHD), combined type Weight gain Other symptoms concerning nutrition, metabolism, and development Obesity, morbid, BMI 40.0-49.9 [place] [place] Attention deficit disorder (ADD) without hyperactivity- Primary Morbid (severe) obesity due to excess calories (E66.01) Chronic gastritis without bleeding, unspecified gastritis type Attention deficit hyperactivity disorder (ADHD), predominantly inattentive type Elevated blood pressure reading Elevated blood pressure reading without diagnosis of hypertension COVID-19 Elevated blood pressure reading- Primary Elevated blood pressure reading without diagnosis of hypertension Hyperglycemia Other abnormal glucose Bilateral sciatica- Primary Sciatica Attention deficit hyperactivity disorder (ADHD), combined type Piriformis syndrome of both sides Grief reaction Adjustment disorder with depressed mood Weight gain- Primary Other symptoms concerning nutrition, metabolism, and development Obesity, morbid, BMI 40.0-49.9 [place] [place] Bilateral sciatica Sciatica Generalized anxiety disorder Generalized anxiety disorder Lumbar radiculopathy, acute- Primary Sacral back pain Disorders of sacrum Sacroiliitis Sacroiliitis, not elsewhere classified Attention deficit hyperactivity disorder (ADHD), combined type documented in this encounter [facility] Healthcare Summary Purpose Family History No Family History Records FoundNo Family History Records FoundNo Family History Records FoundNo Family History Records FoundNo Family History Records FoundNo Family History Records FoundNo Family History Records Found Advance Directives TypeDate RecordedPatient RepresentativeExplanationAdvance Directives and Living Will01/27/2019 10:09 AMTypeDate RecordedPatient RepresentativeExplanationAdvance Directives and Living Will01/31/2019 10:09 AM Discharge Instructions * Attachments The following attachments cannot be sent through Care Everywhere. * UTI (Urinary Tract Infection): Female (Bulgarian) documented in this encounter* Attachments The following attachments cannot be sent through Care Everywhere. * Numbness and Tingling (Bulgarian) documented in this encounter Assessments Diagnosis Flank pain- Primary Abdominal pain, unspecified site Urinary tract infection without hematuria, site unspecified Diagnosis Paresthesia- Primary Disturbance of skin sensation Diagnosis Obesity, morbid, BMI 40.0-49.9- Primary Depression, unspecified depression type Anxiety Anxiety state, unspecified Gastroesophageal reflux disease, esophagitis presence not specified Chronic bilateral low back pain with bilateral sciatica Hyperglycemia Other abnormal glucose Chronic joint pain Pain in joint, site unspecified Diagnosis Obesity, morbid, BMI 40.0-49.9 Diagnosis Enlarged thyroid Goiter, unspecified Reason for Referral StatusReasonSpecialtyDiagnoses / ProceduresReferred By ContactReferred To ContactNew Request Diagnoses Obesity, morbid, BMI 40.0-49.9 Depression, unspecified depression type Anxiety Gastroesophageal reflux disease, esophagitis presence not specified Chronic bilateral low back pain with bilateral sciatica Hyperglycemia Chronic joint pain Procedures ECG Syed Vargas MD [address] [place], [place] [id number] StatusReasonSpecialtyDiagnoses / ProceduresReferred By ContactReferred To ContactNew RequestSleep Medicine Diagnoses Obesity, morbid, BMI 40.0-49.9 Depression, unspecified depression type Anxiety Gastroesophageal reflux disease, esophagitis presence not specified Chronic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 [address] PCP - [facility]02/02/23 Medhat Haas MD [address] [facility] [address] [place] [address] PCP - [facility]12/11/23Team MemberRelationshipSpecialtyStart DateEnd Date Medhat Haas MD [address] [facility] [address] [place] [address] PCP - [facility]02/02/23 Medhat Haas MD [address] [facility] [address] [place] [address] PCP - [facility]12/11/23Te MemberRelationshipSpecialtyStart DateEnd Date Medhat Haas MD [address] [place] [address] PCP - [facility]02/02/23 Medhat Haas MD [address] [place] [address] PCP - [facility]12/11/23Te MemberRelationshipSpecialtyStart DateEnd Date Medhat Haas MD [address] [place] [address] PCP - [facility]02/02/23 Medhat Haas MD [address] [place] [address] PCP [facility]12/11/23Te MemberRelationshipSpecialtyStart DateEnd Date Medhat Haas MD [address] [place] [address] PCP - [facility]02/02/23 eMdhat Haas MD [address] [place] [address] [facility]12/11/23Te MemberRelationshipSpecialtyStart DateEnd Date Medhat Haas MD [address] [place] [address] PCP - [facility]02/02/23 Medhat Haas MD [address] [place] [address] [facility]12/11/23Te MemberRelationshipSpecialtyStart DateEnd Date Medhat Haas MD [address] [place] [address] PCP - [facility]02/02/23 Medhat Haas MD [address] [facility] [address] [place] [address] PCP - [facility]12/11/23 Medhat Haas MD [address] [facility] [address] [place] [address] PCP - [facility]01/09/25Team MemberRelationshipSpecialtyStart DateEnd Date Medhat Haas MD [address] [facility] [address] [place] [address] PCP - [facility]02/02/23 Medhat Haas MD [address] [facility] [address] [place] [address] PCP - [facility]12/11/23 Medhat Haas MD [address] [facility] [address] [place] [address] PCP - [facility]01/09/25 FOR RECORDS PERTAINING TO PATIENTS WHO ARE OR HAVE BEEN ENROLLED IN A CHEMICAL DEPENDENCY/SUBSTANCEABUSE PROGRAM, SOME INFORMATION MAY BE OMITTED. This clinical summary was aggregated from multiple sources. Caution should be exercised in using it in the provision of clinical care. This summary normalizes information from multiple sources, and as a consequence, information in this document may materially change the coding, format and clinical context of patient data. In addition, data may be omitted in some cases. CLINICAL DECISIONS SHOULD BE BASED ON THE PRIMARY CLINICAL RECORDS. [facility]. provides no warranty or guarantee of the accuracy or completeness of information in this document.
--- OUTSIDE RECORDS SUMMARY | 2025-07-22 06:27 | XMS_ITS | Clinical Summary ---
Author Organization [facility] Address [address] [place] [address] Care Team Providers Care Bid Clerk Name Role Phone Joseluis Byers MD Primary Care Provider [phone] Joseluis Byers MD Unavailable Allergies Active AllergyReactionsCriticalityNoted DateCommentsAcetaminophenRashLow 08/24/2015 Medications MedicationSigDispense QuantityRefillsLast FilledStart DateEnd DateStatus ALPRAZolam (Xanax) 0.5 MG tablet Indications:Grief reactionTake 1 tablet (0.5 mg) by mouth in the morning and 1 tablet (0.5 mg) before bedtime. 60 tablet 5Active Tirzepatide (Mounjaro) 2.5 MG/0.5ML solution auto-injector Indications:Weight gain,Obesity, morbid, BMI 40.0-49.9 ([facility])Inject 2.5 mg under the skin 1 (one) time per week 0.5 mL 5Active methylPREDNISolone (Medrol Dospak) 4 MG tablets Indications:Sacral back painFollow schedule on package instructions 21 tablet 5Active baclofen (Lioresal) 10 MG tablet Indications:Lumbar radiculopathy, acute,Sacral back painTAKE 1 TABLET BY MOUTH IN THE MORNING AND 1 TABLET IN THE EVENING AND 1 TABLET BEFORE BEDTIME. 270 tablet 5Active amphetamine-dextroamphetamine (Adderall) 20 MG tablet Indications:Attention deficit hyperactivity disorder (ADHD), combined typeTake 1 tablet (20 mg) by mouth Daily 30 tablet 5Active Active Problems ProblemNoted DateDiagnosed DateLumbar radiculopathy, acute12/09/2024Sacral back pain12/09/20241832Pzgrkszhzrud70/31/2025 Assessment & Plan (12/09/2024 2:53 PM EDT): Needs PT if NB Consider MRI Weight gain11/14/2024ilateral hvtobrfm95/20/2025 Assessment & Plan (11/14/2024 1:52 PM EST): Improved she is stretching Assessment & Plan (10/31/2024 11:21 AM EST): Stretching exercises Piriformis syndrome of both sides10/31/2024 Assessment & Plan (10/31/2024 11:21 AM EST): Stretching exercises shown Grief /20/2025 Assessment & Plan (10/31/2024 11:28 AM EST): Patient's Medicine is effective at controlling symptoms at current dose and frequency. PDMP reviewed with no evidence of overuse and abuse D/W patient to avoid use of benzodiazepines when consuming alcohol Advised against operating heavy machinery and driving long distances while on medicines. Lkdfpvhfm96/28/2024 Assessment & Plan (02/06/2024 2:17 PM EDT): Omeprazole/Prilosec Tylenol 500mg 1gram every 6 hours Does not look like Gall Bladder COVID-19002/06/2024 Assessment & Plan (02/06/2024 2:34 PM EDT): Patient had tested positive vi home exam and self quarantined. She has no more symptoms. Her fatigue, was her biggest symptom. Any cough and fevers have resolved Elevated blood pressure snbxmud8502/06/2024 Assessment & Plan (02/27/2024 9:12 AM EDT): Our specific goals, for your hypertension, is to keep your blood pressure less than 140/90, and theimportance of weight control. We made recommendations on how to control your blood pressure, and minimize your risk of these copmplications. We also discussed your current barriers to a healthy living and importance of healthy diet and exercise. Prior to your visit today we have reviewed your chart and formed a plan to assist with providing you the best possible care. We reviewed the possible complications of hypertension including, stroke, heart failure and kidney impairment. In addition, we discussed your medications, the importance of taking them as prescribed. Prescreen handouts Assessment & Plan (02/06/2024 2:33 PM EDT): Our specific goals, for your hypertension, is to keep your blood pressure less than 140/90, and theimportance of weight control. We made recommendations on how to control your blood pressure, and minimize your risk of these copmplications. We also discussed your current barriers to a healthy living and importance of healthy diet and exercise. Prior to your visit today we have reviewed your chart and formed a plan to assist with providing you the best possible care. We reviewed the possible complications of hypertension including, stroke, heart failure and kidney impairment. In addition, we discussed your medications, the importance of taking them as prescribed. Prescreen handouts History of fvsbmbrohxdaoc61/22/2023ttention deficit hyperactivity disorder 02/02/2023 Assessment & Plan (10/31/2024 11:29 AM EST): Patient's Current ADD is controlled with current dose No evidence of overuse or abuse Weight has been stable Encouraged Medication Holidays PDMP reviewed F/U routinely every 3 months Assessment & Plan (02/06/2024 2:18 PM EDT): Patient's Current ADD is controlled with current dose No evidence of overuse or abuse Weight has been stable Encouraged Medication Holidays PDMP reviewed F/U routinely every 4 months Assessment & Plan (06/13/2023 3:40 PM EDT): Patient's Current ADD is controlled with current dose No evidence of overuse or abuse Weight has been stable Encouraged Medication Holidays PDMP reviewed F/U routinely every 4 months Generalized anxiety vsrbthyc28/25/2023 Assessment & Plan (11/14/2024 1:51 PM EST): Patient's Medicine is effective at controlling symptoms at current dose and frequency. PDMP reviewed with no evidence of overuse and abuse D/W patient to avoid use of benzodiazepines when consuming alcohol Advised against operating heavy machinery and driving long distances while on medicines. Skwnmxguxc45/25/2023Other xsexcymszepe68/25/2023hronic bilateral low back pain with bilateral gwaszodd01/17/2019Chronic joint pain05/28/2019Hyperglycemia 05/28/2019Obesity, morbid, BMI 40.0-49.9005/28/2019 Assessment & Plan (02/06/2024 2:19 PM EDT): Weight Loss advised Assessment & Plan (06/13/2023 3:39 PM EDT): Needs life style modification. Exercise Routinely Low Calorie Diet F/U in 2 weeks 3500 calorie deficit = 1lb weight loss Small portions TIming of meals Reduce Carbohydrate Intake High Protein Diet Enlarged ekgfoar6603/13/2019Gastroesophageal reflux ozhyuue1703/13/2019Paresthesia of skin01/27/20192695Ygcynda51/31/2018Wrist pain, acute, right01/17/2018Obesity affecting , antepartum ([facility])08/17/2017Renal agenesis of fetus affecting antepartum care of mother ([facility])08/17/2017 Family History Medical HistoryRelationNameCommentsHyperlipidemiaFatherDadHypertensionMotherMom RelationNameStatusCommentsBrotherAlive1 brotherDaughterAlive2 daughtersFatherDad AliveMotherMomAliveSisterAlive3 sistersSonAlive2 sons Social History Tobacco UseTypesPacks/DayYears UsedDateSmoking Tobacco: FormerCigarettes0.513.2 12/14/2009 - 03/11/2023Smokeless Tobacco: Never Tobacco Cessation:Counseling Given: Not Answered Alcohol UseStandard Drinks/WeekCommentsNot Currently0 (1 standard drink = 0.6 oz pure alcohol)B1300 Health LiteracyAnswerDate RecordedHow often do you need to have someone help you when you read instructions, pamphlets, or other written material from your doctor or pharmacy?Never12/08/2024Humiliation, Afraid, Rape, and Kick questionnaireAnswerDate RecordedWithin the last year, have you been afraid of your partner or ex-partner?No06/04/2023Within the last year, have you been humiliated or emotionally abused in other ways by your partner or ex-partner?06/04/2023Within the last year, have you been kicked, hit, slapped, or otherwise physically hurt by your partner or ex-partner?06/04/2023Within the last year, have you been raped or forced to have any kind of sexual activity by your partner or ex-partner?No06/04/2023Social Connection and Isolation Panel AnswerDate RecordedIn a typical week, how many times do you talk on the phone with family, friends, or neighbors?Three times a week12/08/2024How often do you get together with friends or relatives?Twice a week12/08/2024How often do you attend zoroastrianism or rastafari services?More than 4 times per year12/08/2024Do you belong to any clubs or organizations such as zoroastrianism groups, unions, fraternal or athletic groups, or school groups?No12/08/2024How often do you attend meetings of the clubs or organizations you belong to?Patient czzlrbao66/30/2025re you , , , , never , or living with a partner? Living with iqsuvzh5712/08/2024UDIT-CAnswerDate RecordedQ1: How often do you have a drink containing alcohol?Never12/08/2024Q2: How many drinks containing alcohol do you have on a typical day when you are drinking?Patient does not drink 12/08/2024Q3: How often do you have six or more drinks on one occasion?Never 12/08/2024Overall Financial Resource Strain (CARDIA)AnswerDate RecordedHow hard is it for you to pay for the very basics like food, housing, medical care, and heating?Not hard at all12/08/2024PHQ-2AnswerDate RecordedPatient Health Questionnaire-2 Dfkay159[facility] [place] [facility] Occupational Health - Occupational Stress QuestionnaireAnswerDate RecordedDo you feel stress - tense, restless, nervous, or anxious, or unable to sleep at night because yourmind is troubled all the time - these days?To some vmmnvm2012/08/2024Exercise Vital Sign AnswerDate RecordedOn average, how many days per week do you engage in moderate to strenuous exercise (like a brisk walk)?5 days12/08/2024On average, how many minutes do you engage in exercise at this level?20 min12/08/2024Hunger Vital SignAnswerDate RecordedWithin the past 12 months, you worried that your food would run out before you got the money to buymore.Never true12/08/2024Within the past 12 months, the food you bought just didn't last and you didn't have money to get more.Never true12/08/2024PRAPARE - TransportationAnswerDate RecordedIn the past 12 months, has lack of transportation kept you from medical appointments or from getting medications?No12/08/2024In the past 12 months, has lack of transportation kept you from meetings, work, or from getting things needed for daily living?No12/08/2024Housing Stability Vital SignAnswerDate RecordedIn the last 12 months, was there a time when you were not able to pay the mortgage or rent on time?No06/04/2023In the last 12 months, how many places have you lived?In the last 12 months, was there a time when you did not have a steady place to sleep or slept in located within [facility] (including now)?No 06/04/2023Housing Stability Vital SignAnswerDate RecordedIn the last 12 months, was there a time when you were not able to pay the mortgage or rent on time?No 12/08/2024In the past 12 months, how many times have you moved where you were living?t any time in the past 12 months, were you homeless or living in a fci (including now)?No12/08/2024CommentsUnknownSex and Gender InformationValueDate RecordedSex Assigned at LalrwBeewth75/15/2023 10:44 AM EDT Legal YbzUdgzsa07/15/2023 6:55 PM EDTGender MfdcvvbiDxgiqz52/ 10:44 AM EDTSexual IxfvvxsmzteDdlmrhpo21/15/2023 10:44 AM EDT Last Filed Vital Signs Vital SignReadingTime TakenCommentsBlood Ulhrxwgl515/8612/09/2024 2:31 PM EDT Taouz964512/09/2024 2:31 PM EDTTemperature--Respiratory Ksao8700 10:39 AM EDTOxygen Hrcucroxly13%12/09/2024 2:31 PM EDTInhaled Oxygen Concentration-- Ddztci784 kg (252 lb)12/09/2024 2:31 PM XECFotzhm777.5 cm (5' 2 )12/09/2024 2:31 PM EDTBody Mass Index46.0912/09/2024 2:31 PM EDT Plan of Treatment Health MaintenanceDue DateLast DoneCommentsPap Smear2010Cervical Cancer Vwiwpfqge53/05/2019HPV/Jpawmx0202/13/2019COVID-19 Vaccine ( season) 2025Influenza Vaccine (#1)2025Pneumococcal Vaccine: Pediatrics (0 to 5 Years) and At-Risk Patients (6 to 64 Years)Aged OutNo longer eligible based on patient's age to complete this topic Insurance Care Teams Team MemberRelationshipSpecialtyStart DateEnd Joseluis Byers MD [address] [address] PCP - [facility]02/02/23 Joseluis Byers MD [address] [place] [address] PCP - [facility]12/11/23
== END 2025-07-22 07:40 | disposition home or self-care (01) ==
PROVIDERS: Emergency Provider Internal Medicine; PCP Family Medicine
DX: K80.50 Calculus of bile duct without cholangitis or cholecystitis without obstruction (principal)
CPT/HCPCS: 36415; 74176; 80053; 83605; 83690; 84484; 85025; 99284

== ENCOUNTER 2025-08-27 20:32 | Emergency (ER) | payer SELFPAY ==
[2025-08-27 20:39] VITALS: BP 144/100; PULSE 122; TEMP 36.7; O2SAT 98; BMI 36.6
--- NOTE | 2025-08-27 20:54 | ED.ABDPAIN1 ---
Documented by User: Carmelita Casey 08/27/25 21:50 HPI - Abdominal Pain General Chief Complaint: Abdominal Pain Stated Complaint: Abdominal Pain Time Seen by Provider: 08/27/25 20:45 Source: patient Mode of arrival: walk-in History of Present Illness HPI narrative: 35 year old female presents to the ED for low abd pressure, pain. States it feels like something is pressing on her vagina. Denies fever, chills, injury, N/V/D, urinary symptoms. She is having vaginal bleeding. States her LNMP was 3 weeks ago. She started having spotting today. Related Data Home Medications ?Medication ?Instructions ?Recorded ?Confirmed No Known Home Medications 07/22/25 07/22/25 Allergies Allergy/AdvReac Type Severity Reaction Status Date / Time No Known Drug Allergies Allergy Verified 07/22/25 04:57 Review of Systems ROS Constitutional Denies: fever or chills Cardiovascular Denies: chest pain Respiratory Denies: shortness of breath Gastrointestinal Reports: abdominal pain; Denies: nausea, vomiting or diarrhea Genitourinary Reports: pelvic pain and vaginal bleeding; Denies: painful urination, urinary frequency, urinary urgency or blood in urine Musculoskeletal Denies: back pain Integumentary/Breast Denies: rash PFSH PFSH Social History Little interest or pleasure in doing things: not at all Feeling down, depressed, or hopeless: not at all Exam Constitutional Vital Signs, click to edit/add: Last Vital Signs Temp 98.0 F 08/27/25 20:39 Pulse 122 H 08/27/25 20:39 Resp 18 08/27/25 20:39 BP 144/100 H 08/27/25 20:39 Pulse Ox 98 08/27/25 20:39 O2 Del Method Room Air 08/27/25 20:39 Common normals: no apparent distress and oriented x3 General appearance: cooperative HENMT Common normals: moist oral mucous membranes Eye Common normals: conjunctivae normal and no scleral icterus Neck & C-Spine Common normals: supple Respiratory Common normals: normal respiratory effort Effort & inspection: able to speak in complete sentences and symmetric chest movement Cardio Common normals: regular rate GI Common normals: soft to palpation Palpation: tender Details: suprapubic Speculum exam - vagina: vaginal bleeding Amount: scant and vaginal tenderness Other: Jaci 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 Course Vital Signs Vital signs: Vital Signs Temperature 98.0 F 08/27/25 20:39 Pulse Rate 122 H 08/27/25 20:39 Respiratory Rate 18 08/27/25 20:39 Blood Pressure 144/100 H 08/27/25 20:39 Pulse Oximetry 98 08/27/25 20:39 Oxygen Delivery Method Room Air 08/27/25 20:39 Temperature 98.0 F 08/27/25 20:39 Pulse Rate 122 H 08/27/25 20:39 Respiratory Rate 18 08/27/25 20:39 Blood Pressure 144/100 H 08/27/25 20:39 Pulse Oximetry 98 08/27/25 20:39 Oxygen Delivery Method Room Air 08/27/25 20:39 MDM - Abdominal Pain MDM Narrative Medical decision making narrative: CT scan was pending. Care was resumed to Dr. Atkins. See her dictation for further evaluation and treatment. Differential Diagnosis Differential diagnosis: Likely abdominal pain, calculus of kidney, small bowel obstruction and other (Prolapse, UTI, pelvic pain) Medical Records Attestation: I reviewed the patient's medical records. Lab Data Attestation: I reviewed the patient's lab results. Labs: Lab Results 08/27/25 08/27/25 Range/Units 20:58 21:37 WBC 9.4 (4.0-11.0) 10^3/uL RBC 4.08 L (4.20-5.40) 10^6/uL Hgb 11.5 L (12.0-16.0) g/dL Hct 34.1 L (36.0-48.0) % MCV 83.6 (81.0-99.0) fL MCH 28.2 (26.7-34.0) pg MCHC 33.7 (29.9-35.2) g/dL RDW 12.9 (11.0-15.0) % Plt Count 257 (150-450) 10^3/uL MPV 10.5 (9.5-13.5) fL Neut % (Auto) 55.2 (43.0-75.0) % Lymph % (Auto) 34.5 (20.5-60.0) % Page % (Auto) 7.6 (1.7-12.0) % Eos % (Auto) 1.8 (0.9-7.0) % Baso % (Auto) 0.5 (0.2-2.0) % Neut # (Auto) 5.2 (1.4-6.5) 10^3/uL Lymph # (Auto) 3.2 (1.2-3.8) 10^3/uL Page # (Auto) 0.7 (0.3-0.8) 10^3/uL Eos # (Auto) 0.2 (0.0-0.7) 10^3/uL Baso # (Auto) 0.1 (0.0-0.1) 10^3/uL Abs Immat Gran (auto) 0.04 H (0.00-0.03) 10^3/uL Imm/Tot Granulo (auto) 0.4 (0.0-0.5) % Sodium 137 (136-145) mmol/L Potassium 3.6 (3.5-5.1) mmol/L Chloride 104 (98-107) mmol/L Carbon Dioxide 27.2 (21.0-32.0) mmol/L Anion Gap 9.4 BUN 8.0 (7.0-18.0) mg/dL Creatinine 0.65 (0.55-1.02) mg/dL Est GFR ( Amer) >60 (>=60 mL/min/1.73m^2) Est GFR (Non-Af Amer) >60 (>=60 mL/min/1.73m^2) BUN/Creatinine Ratio 12.3 Glucose 110 H (74-106) mg/dL Calcium 8.8 (8.5-10.1) mg/dL Total Bilirubin 0.1 L (0.2-1.0) mg/dL AST 15 (15-37) U/L ALT 25 (14-59) U/L Alkaline Phosphatase 51 (46-116) U/L Total Protein 6.8 (6.4-8.2) g/dL Albumin 3.3 L (3.4-5.0) g/dL Globulin 3.5 g/dL Albumin/Globulin Ratio 0.9 Urine Color Lt. yellow (YELLOW) Urine Clarity Sl cloudy (CLEAR) Urine pH 7.0 (5.0-9.0) Ur Specific [place] 1.010 (1.005-1.025) Urine Protein Negative (NEG/TRACE) mg/dL Urine Glucose (UA) Negative (NEGATIVE) mg/dL Urine Ketones Negative (NEGATIVE) mg/dL Urine Occult Blood Large A (NEGATIVE) Urine Nitrite Negative (NEGATIVE) Urine Bilirubin Negative (NEGATIVE) Urine Urobilinogen 0.2 (0.2-1.0) EU/dL Ur Leukocyte Esterase Trace A (NEGATIVE) Urine RBC 0-2 (0-2) #/HPF Urine WBC 0-2 A (NONE SEEN) #/HPF Ur Squamous Epith Cells Moderate A (NONE/RARE) #/LPF Ur Transition Epith Cell Rare A (NONE SEEN) #/LPF Urine Crystals Seen A (None Seen) #/HPF Amorphous Sediment Few Urine Bacteria Trace A (NONE SEEN) #/HPF Urine Casts None seen (NONE SEEN) #/LPF Urine Mucus None seen (NONE SEEN) Urine HCG, Qual Negative (NEGATIVE) Imaging Data CT scan - abdomen: Radiologist's impression: ITS Impressions Abdomen/Pelvis CT 08/27/25 21:08 IMPRESSION: Degenerative changes are noted in the lumbar spine with a left central disc extrusion showing mild caudal migration. There is accompanying vacuum disc phenomena extending into the extruded disc. This most likely contributes to mass effect on the traversing left L5 nerve roots and is unchanged when compared to the prior study. No acute intra-abdominal pathology. Stones are noted in the gallbladder. This is similar to the prior exam. Impression dictated by: Vincenzo López M.D. 08/27/2025 10:28 PM Dictation Location: [place] [address] Electronically authenticated by: [id number] Y Date: 08/27/2025 22:28 Discharge Plan Discharge Chief Complaint: Abdominal Pain Clinical Impression: Lower abdominal pain, Pelvic pain Patient Disposition: Home, Self-Care Time of Disposition Decision: 22:47 Condition: Good Prescriptions / Home Meds: No Action No Known Home Medications Print Language: Guyanese Instructions: Pelvic Pain in Women (ED), Abdominal Pain (ED) Referrals: MEDHAT HAAS [Primary Care Provider, Family Practice] - 1 week Documented by User: Jing Atkins MD 08/27/25 22:48 HPI - Abdominal Pain General Chief Complaint: Abdominal Pain Stated Complaint: Abdominal Pain Time Seen by Provider: 08/27/25 20:45 Related Data Home Medications ?Medication ?Instructions ?Recorded ?Confirmed No Known Home Medications 07/22/25 07/22/25 Allergies Allergy/AdvReac Type Severity Reaction Status Date / Time No Known Drug Allergies Allergy Verified 07/22/25 04:57 PFSH PFSH Social History Little interest or pleasure in doing things: not at all Feeling down, depressed, or hopeless: not at all Exam Constitutional Vital Signs, click to edit/add: Last Vital Signs Temp 98.0 F 08/27/25 20:39 Pulse 122 H 08/27/25 20:39 Resp 18 08/27/25 20:39 BP 144/100 H 08/27/25 20:39 Pulse Ox 98 08/27/25 20:39 O2 Del Method Room Air 08/27/25 20:39 Course Vital Signs Vital signs: Vital Signs Temperature 98.0 F 08/27/25 20:39 Pulse Rate 122 H 08/27/25 20:39 Respiratory Rate 18 08/27/25 20:39 Blood Pressure 144/100 H 08/27/25 20:39 Pulse Oximetry 98 08/27/25 20:39 Oxygen Delivery Method Room Air 08/27/25 20:39 Temperature 98.0 F 08/27/25 20:39 Pulse Rate 122 H 08/27/25 20:39 Respiratory Rate 18 08/27/25 20:39 Blood Pressure 144/100 H 08/27/25 20:39 Pulse Oximetry 98 08/27/25 20:39 Oxygen Delivery Method Room Air 08/27/25 20:39 MDM - Abdominal Pain MDM Narrative Medical decision making narrative: CT scan was pending. Care was resumed to Dr. Atkins. See her dictation for further evaluation and treatment. This 35-year-old female was seen and evaluated in conjunction with the nurse practitioner. She presents for evaluation of lower abdominal pain and pressure and concerned that she has a prolapse. Her physical exam was mostly benign with some mild vaginal bleeding but did not show any gross abnormalities. Routine labs are reviewed. She has a normal white count and stable hemoglobin. Electrolytes are normal. Urine is negative for infection. CT scan of the abdomen pelvis shows gallstones and degenerative disc disease both of which the patient was aware of. The patient is very anxious thinking that she had a large tumor in her pelvis. She is very relieved to see that her CT scan results and was given a copy. She follows up with a nurse practitioner at Dr. Haas's office. I encouraged her to follow-up for a more formal pelvic exam. She is in agreement with this. She does not have any pain requirements at this time and is anxious to be discharged home. Lab Data Labs: Lab Results 08/27/25 08/27/25 Range/Units 20:58 21:37 WBC 9.4 (4.0-11.0) 10^3/uL RBC 4.08 L (4.20-5.40) 10^6/uL Hgb 11.5 L (12.0-16.0) g/dL Hct 34.1 L (36.0-48.0) % MCV 83.6 (81.0-99.0) fL MCH 28.2 (26.7-34.0) pg MCHC 33.7 (29.9-35.2) g/dL RDW 12.9 (11.0-15.0) % Plt Count 257 (150-450) 10^3/uL MPV 10.5 (9.5-13.5) fL Neut % (Auto) 55.2 (43.0-75.0) % Lymph % (Auto) 34.5 (20.5-60.0) % Page % (Auto) 7.6 (1.7-12.0) % Eos % (Auto) 1.8 (0.9-7.0) % Baso % (Auto) 0.5 (0.2-2.0) % Neut # (Auto) 5.2 (1.4-6.5) 10^3/uL Lymph # (Auto) 3.2 (1.2-3.8) 10^3/uL Page # (Auto) 0.7 (0.3-0.8) 10^3/uL Eos # (Auto) 0.2 (0.0-0.7) 10^3/uL Baso # (Auto) 0.1 (0.0-0.1) 10^3/uL Abs Immat Gran (auto) 0.04 H (0.00-0.03) 10^3/uL Imm/Tot Granulo (auto) 0.4 (0.0-0.5) % Sodium 137 (136-145) mmol/L Potassium 3.6 (3.5-5.1) mmol/L Chloride 104 (98-107) mmol/L Carbon Dioxide 27.2 (21.0-32.0) mmol/L Anion Gap 9.4 BUN 8.0 (7.0-18.0) mg/dL Creatinine 0.65 (0.55-1.02) mg/dL Est GFR ( Amer) >60 (>=60 mL/min/1.73m^2) Est GFR (Non-Af Amer) >60 (>=60 mL/min/1.73m^2) BUN/Creatinine Ratio 12.3 Glucose 110 H (74-106) mg/dL Calcium 8.8 (8.5-10.1) mg/dL Total Bilirubin 0.1 L (0.2-1.0) mg/dL AST 15 (15-37) U/L ALT 25 (14-59) U/L Alkaline Phosphatase 51 (46-116) U/L Total Protein 6.8 (6.4-8.2) g/dL Albumin 3.3 L (3.4-5.0) g/dL Globulin 3.5 g/dL Albumin/Globulin Ratio 0.9 Urine Color Lt. yellow (YELLOW) Urine Clarity Sl cloudy (CLEAR) Urine pH 7.0 (5.0-9.0) Ur Specific [place] 1.010 (1.005-1.025) Urine Protein Negative (NEG/TRACE) mg/dL Urine Glucose (UA) Negative (NEGATIVE) mg/dL Urine Ketones Negative (NEGATIVE) mg/dL Urine Occult Blood Large A (NEGATIVE) Urine Nitrite Negative (NEGATIVE) Urine Bilirubin Negative (NEGATIVE) Urine Urobilinogen 0.2 (0.2-1.0) EU/dL Ur Leukocyte Esterase Trace A (NEGATIVE) Urine RBC 0-2 (0-2) #/HPF Urine WBC 0-2 A (NONE SEEN) #/HPF Ur Squamous Epith Cells Moderate A (NONE/RARE) #/LPF Ur Transition Epith Cell Rare A (NONE SEEN) #/LPF Urine Crystals Seen A (None Seen) #/HPF Amorphous Sediment Few Urine Bacteria Trace A (NONE SEEN) #/HPF Urine Casts None seen (NONE SEEN) #/LPF Urine Mucus None seen (NONE SEEN) Urine HCG, Qual Negative (NEGATIVE) Imaging Data CT scan - abdomen: Radiologist's impression: ITS Impressions Abdomen/Pelvis CT 08/27/25 21:08 IMPRESSION: Degenerative changes are noted in the lumbar spine with a left central disc extrusion showing mild caudal migration. There is accompanying vacuum disc phenomena extending into the extruded disc. This most likely contributes to mass effect on the traversing left L5 nerve roots and is unchanged when compared to the prior study. No acute intra-abdominal pathology. Stones are noted in the gallbladder. This is similar to the prior exam. Impression dictated by: Vincenzo López M.D. 08/27/2025 10:28 PM Dictation Location: [facility] Electronically authenticated by: [id number] Y Date: 08/27/2025 22:28 Discharge Plan Discharge Chief Complaint: Abdominal Pain Clinical Impression: Lower abdominal pain, Pelvic pain Patient Disposition: Home, Self-Care Time of Disposition Decision: 22:47 Condition: Good Prescriptions / Home Meds: No Action No Known Home Medications Print Language: Guyanese Instructions: Pelvic Pain in Women (ED), Abdominal Pain (ED) Referrals: MEDHAT HAAS [Primary Care Provider, Family Practice] - 1 week
--- NOTE | 2025-08-27 21:08 | CT_ITS ---
The [address] [address] Patient Name: ENIO TINSLEY MRN: [id number] date: 1990 Sex: F Assigned Patient Location: ED.MAIN Current Patient Location: ED.MAIN Accession/Order Number: [id number] Exam Date: 08/27/2025 22:07 Report Date: 08/27/2025 22:28 At the request of: TERESA WEBB Procedure: CT abdomen pelvis wo con CT abdomen pelvis wo con 08/27/2025 10:13 PM SIGNS AND SYMPTOMS: Acute lower abdominal pain, lower abdominal pressure TECHNIQUE: Multidetector ct axial images of the abdomen and pelvis were obtained without IV contrast. Multiplanar reformats were performed and reviewed to further define anatomy and possible pathology. CT was performed with one or more of the following dose reduction techniques: Automated exposure control, adjustment of the mA and/or kV according to patient size, or use of iterative reconstruction technique. COMPARISON: 07/22/2025 FINDINGS: Lower Chest: Within normal limits. ABDOMEN: Liver: Within normal limits. Bile Ducts: Normal caliber. Gallbladder: Stones are noted in the gallbladder lumen. Pancreas: Within normal limits. Spleen: Within normal limits. Adrenals: Within normal limits. Kidneys: Within normal limits. Pelvis: Reproductive Organs: No pelvic masses. Ureters: Within normal limits. Bladder: Within normal limits. Bowel: Normal caliber. There is a normal appendix in the right lower quadrant. Mesenteric Lymph Nodes: No enlarged mesenteric lymph nodes. Peritoneum: No ascites or free air, no fluid collection. Vessels: within normal limits Retroperitoneum: Within normal limits. Abdominal Wall: Within normal limits. Bones: Degenerative changes are noted in the lumbar spine with a left central disc extrusion showing mild caudal migration. There is accompanying vacuum disc phenomena extending into the extruded disc. CT/CT abdomen pelvis wo con IMPRESSION: Degenerative changes are noted in the lumbar spine with a left central disc extrusion showing mild caudal migration. There is accompanying vacuum disc phenomena extending into the extruded disc. This most likely contributes to mass effect on the traversing left L5 nerve roots and is unchanged when compared to the prior study. No acute intra-abdominal pathology. Stones are noted in the gallbladder. This is similar to the prior exam. Impression dictated by: Vincenzo López M.D. 08/27/2025 10:28 PM Dictation Location: [place] [address] Electronically authenticated by: [id number] Y Date: 08/27/2025 22:28
[2025-08-27 21:10] LABS: Hematocrit 34.1 % (36.0-48.0); Hemoglobin 11.5 g/dL (12.0-16.0); Immature Granulocytes Abs Auto 0.04 10^3/uL (0.00-0.03); Immature Granulocytes Pct Auto 0.4 % (0.0-0.5); Lymphocytes Absolute Auto 3.2 10^3/uL (1.2-3.8); Mean Corpuscular HGB Conc 33.7 g/dL (29.9-35.2); Mean Corpuscular Hemoglobin 28.2 pg (26.7-34.0); Mean Corpuscular Volume 83.6 fL (81.0-99.0); Platelet Count 257 10^3/uL (150-450); Red Blood Count 4.08 10^6/uL (4.20-5.40); White Blood Count 9.4 10^3/uL (4.0-11.0)
[2025-08-27 21:24] LABS: Alanine Aminotransferase 25 U/L (14-59); Albumin Globulin Ratio 0.9; Albumin Level 3.3 g/dL (3.4-5.0); Alkaline Phosphatase 51 U/L (46-116); Anion Gap 9.4; Aspartate Amino Transferase 15 U/L (15-37); Blood Urea Nitrogen 8.0 mg/dL (7.0-18.0); Calcium 8.8 mg/dL (8.5-10.1); Carbon Dioxide 27.2 mmol/L (21.0-32.0); Chloride 104 mmol/L (98-107); Estimated GFR (African America >60 (>=60 mL/min/1.73m^2); Estimated GFR (Non-African Ame >60 (>=60 mL/min/1.73m^2); Globulin 3.5 g/dL; Glucose 110 mg/dL (74-106); Potassium 3.6 mmol/L (3.5-5.1); Sodium 137 mmol/L (136-145); Total Protein 6.8 g/dL (6.4-8.2)
[2025-08-27 21:46] LABS: Glucose Urine UA NEGATIVE (NEGATIVE)
[2025-08-27 21:56] LABS: Cast Seen? NONE SEEN #/LPF (NONE SEEN); Crystals Seen? Seen #/HPF (None Seen); HCG Qualitative Urine* NEGATIVE (NEGATIVE)
--- OUTSIDE RECORDS SUMMARY | 2025-08-27 22:01 | XMS_ITS | Clinical Summary ---
Author Organization [facility] Address [address] [place] [address] Care Team Providers Care Facility Security Officer Name Role Phone Joseluis Byers MD Primary Care Provider [phone] Joseluis Byers MD Unavailable Allergies Active AllergyReactionsCriticalityNoted DateCommentsAcetaminophenRashLow 08/24/2015 Medications MedicationSigDispense QuantityRefillsLast FilledStart DateEnd DateStatus ALPRAZolam (Xanax) 0.5 MG tablet Indications:Grief reactionTake 1 tablet (0.5 mg) by mouth in the morning and 1 tablet (0.5 mg) before bedtime. 60 tablet 5Active Tirzepatide (Mounjaro) 2.5 MG/0.5ML solution auto-injector Indications:Weight gain,Obesity, morbid, BMI 40.0-49.9 ([facility])Inject 2.5 mg under the skin 1 (one) [...] (20 mg) by mouth Daily 30 tablet 501/6Active amphetamine-dextroamphetamine (Adderall) 20 MG tablet Indications:Attention deficit hyperactivity disorder (ADHD), combined typeTake 1 tablet (20 mg) by mouth Daily 30 tablet 5110/20/2024Discontinued(Reorder) Active Problems ProblemNoted DateDiagnosed DateLumbar radiculopathy, acute12/09/2024Sacral back pain12/09/20245191Bngitgsnboqw23/31/2025 Assessment & Plan (12/09/2024 2:53 PM EDT): Needs PT if NB Consider MRI Weight gain11/14/2024ilateral fvshzfgu81/20/2025 Assessment & Plan (11/14/2024 1:52 PM EST): Improved she is stretching Assessment & Plan (10/31/2024 11:21 AM EST): Stretching exercises Piriformis syndrome of both sides10/31/2024 Assessment & Plan (10/31/2024 11:21 AM EST): Stretching exercises shown Grief ozkawept71/20/2025 Assessment & Plan (10/31/2024 11:28 AM EST): Patient's Medicine is effective at controlling symptoms at current dose and frequency. PDMP reviewed with no evidence of overuse and abuse D/W patient to avoid use of benzodiazepines when consuming alcohol Advised against operating heavy machinery and driving long distances while on medicines. Qieukouui10/28/2024 Assessment & Plan (02/06/2024 2:17 PM EDT): Omeprazole/Prilosec Tylenol 500mg 1gram every 6 hours Does not look like Gall Bladder COVID-19002/06/2024 Assessment & Plan (02/06/2024 2:34 PM EDT): Patient had tested positive vi home exam and self quarantined. She has no more symptoms. Her fatigue, was her biggest symptom. Any cough and fevers have resolved Elevated blood pressure mbngwsc0402/06/2024 Assessment & Plan (02/27/2024 9:12 AM EDT): [...] the importance of taking them as prescribed. [employer] handouts Assessment & Plan (02/06/2024 2:33 PM [...] the importance of taking them as prescribed. [employer] handouts History of qvnxekhpbopqva43/22/2023ttention deficit hyperactivity disorder 02/02/2023 Assessment & Plan [...] F/U routinely every 4 months Generalized anxiety twrbpoem25/25/2023 Assessment & Plan (11/14/2024 1:51 PM EST): Patient's Medicine is effective at controlling symptoms at current dose and frequency. PDMP reviewed with no evidence of overuse and abuse D/W patient to avoid use of benzodiazepines when consuming alcohol Advised against operating heavy machinery and driving long distances while on medicines. Zqdsmrkqax38/25/2023Other /25/2023hronic bilateral low back pain with bilateral oikjeplj91/17/2019Chronic joint pain05/28/2019Hyperglycemia 05/28/2019Obesity, morbid, BMI 40.0-49.9005/28/2019 Assessment & Plan (02/06/2024 2:19 PM EDT): Weight Loss advised Assessment & Plan (06/13/2023 3:39 PM EDT): Needs life style modification. Exercise Routinely Low Calorie Diet F/U in 2 weeks 3500 calorie deficit = 1lb weight loss Small portions TIming of meals Reduce Carbohydrate Intake High Protein Diet Enlarged xfyijvw7103/13/2019Gastroesophageal reflux gocxvyc3403/13/2019Paresthesia of skin01/27/20195573Qzxbxlx34/31/2018Wrist pain, acute, right01/17/2018Obesity affecting , antepartum ([facility])08/17/2017Renal agenesis of fetus affecting antepartum care of mother ([facility])08/17/2017 Encounters DateTypeDepartmentCare IxncQjlmuppxjks75/09/2025Telephone [facility] [address] [place] [address] Joseluis Byers MD from Last 3 Months Family History Medical HistoryRelationNameCommentsHyperlipidemiaFatherDadHypertensionMotherMom RelationNameStatusCommentsBrotherAlive1 brotherDaughterAlive2 daughtersFatherDad [...] in other ways by your partner or ex-partner?No06/04/2023Within the last year, have you been kicked, hit, slapped, or otherwise physically hurt by your partner or ex-partner?No06/04/2023Within the last year, have you been raped or forced to have any kind of sexual activity by your partner or ex-partner?No06/04/2023Social Connection and Isolation Panel AnswerDate RecordedIn a typical week, how many times do you talk on the phone with family, friends, or neighbors?Three times a week12/08/2024How often do you get together with friends or relatives?Twice a week12/08/2024How often do you attend yazidism or orthodoxy services?More than 4 times per year12/08/2024Do you belong to any clubs or organizations such as yazidism groups, unions, fraternal or athletic groups, or school groups?No12/08/2024How often do you attend meetings of the clubs or organizations you belong to?Patient bwbycect63/30/2025re you , , , , never , or living with a partner? Living with adxvnha7512/08/2024UDIT-CAnswerDate RecordedQ1: How often do you have a [...] heating?Not hard at all12/08/2024PHQ-2AnswerDate RecordedPatient Health Questionnaire-2 Yojzz400[facility] [place] [facility] - Occupational Stress QuestionnaireAnswerDate RecordedDo you feel stress - tense, restless, nervous, or anxious, or unable to sleep at night because yourmind is troubled all the time - these days?To some lbkrjp0212/08/2024Exercise Vital Sign AnswerDate RecordedOn average, how many [...] steady place to sleep or slept in ashelter (including now)?No 06/04/2023Housing Stability Vital SignAnswerDate RecordedIn the last 12 months, was there a time when you were not able to pay the mortgage or rent on time?No 12/08/2024In the past 12 months, how many times have you moved where you were living?t any time in the past 12 months, were you homeless or living in a intermediate (including now)?No12/08/2024CommentsUnknownSex and Gender InformationValueDate RecordedSex Assigned at OxrnzAyjrou86/15/2023 10:44 AM EDT Legal VnkSczjne68/15/2023 6:55 PM EDTGender IdjdpqpsFgrzjb20/15/2023 10:44 AM EDTSexual YcbtivhoxvxAabjzkoz06/15/2023 10:44 AM EDT Last Filed Vital Signs Vital SignReadingTime TakenCommentsBlood Oqxpvgtb746/8612/09/2024 2:31 PM EDT Cefbx420712/09/2024 2:31 PM EDTTemperature--Respiratory Qvtm9064 10:39 AM EDTOxygen Ppsqdoqlrx24%12/09/2024 2:31 PM EDTInhaled Oxygen Concentration-- Imfkms046 kg (252 lb)12/09/2024 2:31 PM SCGWizdmo024.5 cm (5' 2 )12/09/2024 2:31 PM EDTBody Mass Index46.0912/09/2024 2:31 PM EDT Plan of Treatment Health MaintenanceDue DateLast DoneCommentsPap Smear2010Cervical Cancer Gllqynchb64/05/2019HPV/Nppfys6902/13/2019COVID-19 Vaccine ( season) 2025Influenza Vaccine (#1)2025Pneumococcal Vaccine: Pediatrics (0 to 5 Years) and At-Risk Patients (6 to 64 Years)Aged OutNo longer eligible based on patient's age to complete this topic Insurance Care Teams Team MemberRelationshipSpecialtyStart DateEnd Date Joseluis Byers MD [address] [facility] [address] [place] [address] PCP - [facility]02/02/23 Joseluis Byers MD [address] [facility] [address] [place] [address] PCP - [facility]12/11/23
--- OUTSIDE RECORDS SUMMARY | 2025-08-27 22:01 | XMS_ITS | Encounter Summary ---
Author Organization [facility] Address [address] [place] [address] Care Team Providers Care Special Projects Coordinator Name Role Phone Joseluis Byers MD Primary Care Provider [phone] Joseluis Byers MD Unavailable Encounter Details DateTypeDepartmentCare Team (Latest Contact Info)Ymfqrlxfapf14/09/2025Telephone [facility] [address] [facility] [address] [place] [id number] Joseluis Byers MD [address] [place] [address] Social History Tobacco UseTypesPacks/DayYears UsedDateSmoking Tobacco: FormerCigarettes0.513.2 12/14/2009 - 03/11/2023Smokeless Tobacco: NeverAlcohol UseStandard Drinks/Week CommentsNot Currently0 (1 standard drink = 0.6 oz pure alcohol)B1300 Health LiteracyAnswerDate RecordedHow often do you need to have someone help you when you read instructions, pamphlets, or other written material from your doctor or pharmacy?Never12/08/2024Humiliation, Afraid, Rape, and Kick questionnaireAnswer Date RecordedWithin the last year, have you been afraid of your partner or ex-partner?No06/04/2023Within the last year, have you been humiliated or emotionally abused in other ways by your partner or ex-partner?No06/04/2023 Within the last year, have you been kicked, hit, slapped, or otherwise physically hurt by your partner or ex-partner?No06/04/2023Within the last year, have you been raped or forced to have any kind of sexual activity by your part ner or ex-partner?No06/04/2023Social Connection and Isolation PanelAnswerDate RecordedIn a typical week, how many times do you talk on the phone with family, friends, or neighbors?Three times a week12/08/2024How often do you get together with friends or relatives?Twice a week12/08/2024How often do you attend advent or quaker services?More than 4 times per year12/08/2024Do you belong to any clubs or organizations such as advent groups, unions, fraChurchPairing or athletic anahi ups, or school groups?No12/08/2024How often do you attend meetings of the clubs or organizations you belong to?Patient aqajuywd09/30/2025re you , , , , never , or living with a partner?Living with dashwkr8712/08/2024UDIT-CAnswerDate RecordedQ1: How often do you have a [...] heating?Not hard at all12/08/2024PHQ-2AnswerDate RecordedPatient Health Questionnaire-2 Ezdqe408[place] [facility] [place] [facility] - Occupational Stress QuestionnaireAnswerDate RecordedDo you feel stress - tense, restless, nervous, or anxious, or unable to sleep at night because yourmind is troubled all the time - these days?To some hoiehu1812/08/2024Exercise Vital Sign AnswerDate RecordedOn average, how many [...] steady place to sleep or slept in [facility] (including now)?No 06/04/2023Housing Stability Vital SignAnswerDate RecordedIn the last 12 months, was there a time when you were not able to pay the mortgage or rent on time?No 12/08/2024In the past 12 months, how many times have you moved where you were living?t any time in the past 12 months, were you homeless or living in a long term (including now)?No12/08/2024CommentsUnknownSex and Gender InformationValueDate RecordedSex Assigned at CjheaHayaiw70/15/2023 10:44 AM EDT Legal PmmOffdib49/15/2023 6:55 PM EDTGender KynrurupWnexsz72/15/2023 10:44 AM EDTSexual QfknghlghskQfasmhiy21/15/2023 10:44 AM EDTdocumented as of this encounter Miscellaneous Notes * Telephone Encounter - Joseluis Byers MD - 08/19/2025 5:15 PM EST Needed refill of Aderall and samples documented in this encounter Plan of Treatment Not on file documented as of this encounter Visit Diagnoses Diagnosis Attention deficit hyperactivity disorder (ADHD), combined type documented in this encounter Care Teams Team MemberRelationshipSpecialtyStart DateEnd Date Joseluis Byers MD [address] [facility] [address] [place] [address] [facility] - [facility] Joseluis Byers MD [address] [facility] [address] [place] [address] PCP - [facility]12/11/23documented as of this encounter
--- OUTSIDE RECORDS SUMMARY | 2025-08-27 22:01 | XMS_ITS | Clinical Summary ---
Author Organization [facility] Address [address] [place] [address] Care Team Providers Care Project Development Manager Name Role Phone Yonis Turner MD Primary Care Provider [phone] Allergies No known active allergies Medications MedicationSigDispense QuantityRefillsLast FilledStart DateEnd DateStatus busPIRone (BUSPAR) 10 MG tablet Indications:AnxietyTake 1 (one) tablet (10 mg total) by mouth 3 (three) times a day . 90 tablet Active DULoxetine (CYMBALTA) 30 MG capsule Indications:Anxiety,Paresthesia of skinTake 1 (one) capsule (30 mg total) by mouth daily . 30 capsule Active Active Problems ProblemNoted DateDiagnosed DateEnlarged dgdtorx2703/13/2019Gastroesophageal reflux snbpdcv1403/13/2019Paresthesia of skin01/27/20195002Yucjihm47/31/2018Depression 09/10/2018 Family History Medical HistoryRelationCommentsCancerMaternal AuntThyroid diseaseMaternal GrandmotherCancerMaternal UncleThyroid diseaseMotherRelationStatusComments Maternal AuntMaternal GrandmotherMaternal UncleMother Social History Tobacco UseTypesPacks/DayYears UsedDateSmoking Tobacco: FormerSmokeless Tobacco: NeverAlcohol UseStandard Drinks/WeekCommentsNot Currently0 (1 standard drink = 0.6 oz pure alcohol)PHQ-2AnswerDate RecordedPHQ-2 Krsxo39710/14/2018 CommentsNoSex and Gender InformationValueDate RecordedSex Assigned at BirthNot on fileLegal BnnRvnzqm42/22/2015 9:43 AM EDTGender EaytpogvLedygr50/05/2018 9:40 AM EDTSexual IztdhwzkerhJyelwodw41/05/2021 12:52 PM EDT Last Filed Vital Signs Vital SignReadingTime TakenCommentsBlood Vuaijuld319/80003/13/2019 3:43 PM EDT Bxbuz18478/03/2019 3:43 PM NMIDortfofcpvv41.1 ??C (98.8 ??F)03/13/2019 3:43 PM EDTRespiratory Bgtv625603/13/2019 3:43 PM EDTOxygen Gbfsqkdruu86%03/13/2019 3:43 PM EDTInhaled Oxygen Concentration--Tpeyvd160.7 kg (263 lb 12.8 oz)03/13/2019 3:43 PM JLGUmjike263.5 cm (5' 2 )03/13/2019 3:43 PM EDTBody Mass Index48.25 03/13/2019 3:43 PM EDT Plan of Treatment Health MaintenanceDue DateLast DoneCommentsWellness Visit02/14/1992Varicella Vaccines (1 of 2 - 13+ 2-dose series)2002HIV Pydkkisai20/05/2004Hepatitis C Aujqzispd60/05/2007Hepatitis B Vaccines (1 of 3 - 19+ 3-dose series)02/14/2008 Tetanus/Diphtheria/Pertussis (1 - Tdap)02/14/2008Pap Smear2010HPV Vaccines (1 - 3-dose SCDM series)02/14/2016Cervical Cancer Eoutgojua60/05/2019HPV/Cotest 2019Depression Screening/Follow-Up (PHQ-2/9)COVID-19 Vaccine ( - 2024- season)2025Influenza Vaccine (#1)2025Zoster Vaccines (1 of 2)2039RSV Vaccines (1 - 1-dose 75+ series)02/14/2064HIB VaccinesAged OutNo longer eligible based on patient's age to complete this topic Hepatitis A VaccinesAged OutNo longer eligible based on patient's age to complete this topicIPV VaccinesAged OutNo longer eligible based on patient's age to complete this topicMeningococcal ACWY VaccineAged OutNo longer eligible based on patient's age to complete this topicMeningococcal B VaccineAged OutNo longer eligible based on patient's age to complete this topicPneumococcal VaccineAged OutNo longer eligible based on patient's age to complete this topicRotavirus VaccinesAged OutNo longer eligible based on patient's age to complete this topic Insurance * Guarantor: Alesia Ortiz TypeRelation to PatientDate of BirthPhone Billing ItbzhkyQgatqgUlju1990 [address] [place] [address] Care Teams Team MemberRelationshipSpecialtyStart DateEnd Date Yonis Turner MD [address] [place] [address] PCP - Twmmmlf41/7/22
--- OUTSIDE RECORDS SUMMARY | 2025-08-27 22:01 | XMS_ITS | Clinical Summary ---
Author Organization [facility] Address [address] [place] [address] Care Team Providers Care Kst Operator Name Role Phone Unavailable Primary Care Provider [...] ProblemNoted DateDiagnosed Datebody mass index of 40.0-49.909Anxiety 05/28/20190199Tpgrywwjep28/17/2019GERD (gastroesophageal reflux disease)05/28/2019 Chronic bilateral low back pain with bilateral cdrcsbyv95/17/2019Chronic joint pain05/28/20197406Rwlnqdjbyncqv06/17/2019Wrist pain, acute, right01/17/2018 Family History Medical HistoryRelationNameCommentsCancer- OtherOtherfamilyOther - SpecifySister Pituitary Gland TumorRelationNameStatusCommentsOtherfamilyAliveSister Social History Tobacco UseTypesPacks/DayYears UsedDateSmoking Tobacco: ShpugsZdmehviykb7Bdkx: 2018Smokeless Tobacco: NeverAlcohol UseStandard Drinks/WeekCommentsNo0 (1 standard drink = 0.6 oz pure alcohol)CommentsNoSex and Gender InformationValueDate RecordedSex Assigned at BirthNot on fileLegal SexFemale 09/16/2016 7:11 PM ESTGender OvyphvncTabhik18/09/2018 10:39 AM EDTSexual OrientationNot on file Last Filed Vital Signs Vital SignReadingTime TakenCommentsBlood Thvewnwa876/9605/28/2019 11:01 AM EDT Rouvc56625/17/2019 11:01 AM ZDTLoaldtqrisc08.5 ??C (97.7 ??F)01/23/2018 10:37 AM EDTRespiratory Wayr061101/17/2018 12:08 PM EDTOxygen Xtqsersygy45%05/28/2019 11:01 AM EDTInhaled Oxygen Concentration--Laivwn672.9 kg (268 lb 12.8 oz)05/28/2019 11:01 AM AXIKlzrww131 cm (5' 3 )05/28/2019 11:01 AM EDTBody Mass Index47.62 05/28/2019 11:01 AM EDT Plan of Treatment Health MaintenanceDue DateLast DoneCommentsHEPATITIS C VIRUS DEULWSPWL1989 RJACRXF4502/13/1989HIV SCREENING DRBKADXLPM68/05/2004HEP B VACCINE (1 of 3 - 19+ 3-dose series)02/14/2008TDAP (ADULT)02/14/2008CERVICAL CANCER SCREENING VYOIGPEZMK77/05/2010HPV VACCINE (1 - 3-dose SCDM series)02/14/2016COVID-19 VACCINE ( - 2024- season)2025INFLUENZA VACCINE (#1)2025 PNEUMOCOCCAL VACCINE SERIESAged OutNo longer eligible based on patient's age to complete this topic
== END 2025-08-27 23:00 | disposition home or self-care (01) ==
PROVIDERS: Nurse Practitioner Family; Emergency Provider Emergency Medicine; PCP Family Medicine
DX: R10.30 Lower abdominal pain, unspecified (principal); R10.20 Pelvic and perineal pain unspecified side
CPT/HCPCS: 36415; 74176; 80053; 81001; 84703; 85025; 99284